=== PATIENT | male | born 1970 | race Caucasian/White ===

== ENCOUNTER 2020-09-30 09:44 | Emergency (ER) | payer OTHER, SELFPAY ==
[2020-09-30 10:06] VITALS: BP 169/95; PULSE 93; RESP 16; TEMP 36.7; O2SAT 95; BMI 60.8
--- NOTE | 2020-09-30 10:22 | CT_ITS ---
EXAMINATION: CT ABDOMEN AND PELVIS WITHOUT CONTRAST CLINICAL INFORMATION: Mid lower back pain radiating to left flank. COMPARISON: None TECHNIQUE: Multidetector volumetric imaging was performed from the superior aspect of the liver through the pubic symphysis. Sagittal and coronal reformatted images were obtained on the technologist's workstation. This CT examination was performed using dose optimization techniques as appropriate, variously including the following: *Automated exposure control *Adjustment of mA and/or kV according to patient size (this includes techniques or standardized protocols for targeted exams where dose is matched to indication/reason for exam; i.e. extremities or head) *Use of iterative reconstruction technique DLP: 1619 mGy-cm FINDINGS: LUNG BASES: Minimal atelectatic changes seen in the right middle lobe and right lower lobe. A small hiatal hernia is noted. LIVER, GALLBLADDER, AND BILIARY TREE: The liver is normal in size, shape, and attenuation. No focal hepatic lesion or biliary ductal dilatation is present. The gallbladder is unremarkable with no evidence of radiopaque gallstones, gallbladder wall thickening, or obvious pericholecystic inflammatory changes. PANCREAS: Mild fatty infiltration of pancreatic head and the uncinate process is noted. SPLEEN: Unremarkable. ADRENAL GLANDS: Unremarkable. KIDNEYS AND URETERS: The kidneys are normal in size, shape, and attenuation. No hydronephrosis, hydroureter, or calculi seen.There is a 2.3 cm cyst upper pole cortex right kidney. In addition there is mild thinning of the upper pole cortex right kidney. Mild perinephric stranding is seen bilaterally. BLADDER: Unremarkable. GASTROINTESTINAL TRACT: A few scattered diverticuli in scattered stool and gas is seen throughout the colon without distention. The small bowel loops are normal caliber. No free air free fluid seen. ABDOMINAL WALL: No significant hernia is appreciated. LYMPH NODES: Normal. VASCULAR: Unremarkable. PELVIC VISCERA: The prostate gland is normal size with punctate calcification. The periprostatic fat planes are preserved. OSSEOUS STRUCTURES: No fracture, lytic or sclerotic process seen. There is mild degenerative changes bilateral L4-L5 facet joint. CT/CT abdomen pelvis wo con IMPRESSION: Small hiatal hernia. Fatty infiltration of head and the uncinate process of pancreas no suggestion for pancreatitis. No radiopaque gallstones are radiopaque renal calculi. No hydronephrosis. Small cysts with cortical thinning upper pole right kidney. Scattered colonic diverticulosis without adenitis
--- NOTE | 2020-09-30 10:31 | ED.BACK ---
HPI - Back Pain/Injury General Chief Complaint: Back Pain/Injury <LATISHA Whitaker Last Filed: 09/30/20 11:38> Stated Complaint: BACK AND HIP PAIN <LATISHA Whitaker Last Filed: 09/30/20 11:38> Time Seen by Provider: 09/30/20 10:11 <LATISHA Whitaker Last Filed: 09/30/20 11:38> Source: patient <LATISHA Whitaker Last Filed: 09/30/20 11:38> Mode of arrival: ambulatory <LATISHA Whitaker Last Filed: 09/30/20 11:38> Limitations: no limitations <LATISHA Whitaker Last Filed: 09/30/20 11:38> History of Present Illness HPI Narrative: 50yoM c No Sig PMHx presenting to the ED c c/o left mid to lower back pain radiating to left flank/abd/hip/groin for the past few days worse today. Denies any other symptoms complaints or concerns related to this. <LATISHA Whitaker Last Filed: 09/30/20 11:38> Related Data Home Medications: Previous Rx's Medication Instructions Recorded dexamethasone [Decadron] 6 mg PO ONCE #1 tab 09/30/20 diazepam [Valium] 5 mg PO TID PRN #10 tab 09/30/20 lidocaine 1 patch TOPICAL DAILY #15 ea NS 09/30/20 oxycodone 5 mg PO Q8H PRN #10 tab NS 09/30/20 <LATISHA Whitaker Last Filed: 09/30/20 11:38> Allergies/Adverse Reactions: Allergies Allergy/AdvReac Type Severity Reaction Status Date / Time Bleach (Sodium Hypochlorite) Allergy Mild REDNESS Unverified 08/15/20 17:11 [BLEACH (SODIUM ALL OVER HYPOCHLORITE)] BODY naproxen [Aleve] Allergy Unknown Verified 11/11/15 00:00 From ALEVE Allergy Unknown CHEST PAIN Uncoded 08/15/20 17:11 <LATISHA Whitaker Last Filed: 09/30/20 11:38> Review of Systems Review of Systems: Constitutional : No trauma, No Weight loss, No Fever, No Chills, ENT/Mouth : No Hearing loss, No Ear Pain, No Nasal Congestion, No Sinus Pain, No Hoarseness, No sore throat, No Rhinorrhea, No Swallowing Difficulty Cardiovascular : No Chest Pain, No SOB Respiratory : No Cough, No Dyspnea Gastrointestinal : No Nausea, No Vomiting, No Diarrhea, No abdominal Pain, No Hematochezia, No Melena Genitourinary : No Dysuria, No Urinary Frequency, No Hematuria, No Urinary or Bowel Incontinence/retention Musculoskeletal : + Back pain, No neck pain, No joint stiffness, No joint swelling Skin : No Skin Lesions, No rash or signs of infection Neuro : No Weakness, No radiation, No Numbness, No Paresthesias, No headache, no loss of bowel or bladder incontinence, no saddle anesthesia Denies history of IV drug usage. <LATISHA Whitaker - Last Filed: 09/30/20 11:38> Yes all other systems are reviewed and are negative <LATISHA Whitaker - Last Filed: 09/30/20 11:38> [facility] Past Medical History Attestation statement: The following information was validated with the patient. <LATISHA Whitaker - Last Filed: 09/30/20 11:38> Medical History: Medical History No known health problems <LATISHA Whitaker - Last Filed: 09/30/20 11:38> Social History Social History: Social History Advance Directives: No Advance Directives Information Provided: No <LATISHA Whitaker - Last Filed: 09/30/20 11:38> Physical Exam Vital Signs: Vital Signs: Vital Signs Temp Pulse Resp BP Pulse Ox 09/30/20 10:06 98.0 F 93 16 169/95 H 95 Body Mass Index 60.8 vital signs have been reviewed as normal and appeared to be correct. Blood pressure hypertensivel. Heart rate normal. Respiration rate normal. Temperature normal. Oxygen saturation normal. <LATISHA Whitaker - Last Filed: 09/30/20 11:38> Vital Signs: Vital Signs Temp Pulse Resp BP Pulse Ox 09/30/20 10:06 98.0 F 93 16 169/95 H 95 Body Mass Index 60.8 <Real Lopez MD - Last Filed: 10/11/20 01:20> Appearance: Alert. Oriented X3. No acute distress. Head: Normal external exam. Normocephalic. Atraumatic. No Johnson signs noted. No raccoon eyes noted Eyes: PERRLA. EOMI. Conjunctiva and sclera normal. Eyelids normal. ENT: EAC normal. TM's Normal. Pharynx normal. Uvula midline. Moist mucous membranes. No trismus noted. No drooling noted. No muffled voice noted. Neck: Normal inspection. Neck supple. FROM. No adenopathy. Thyroid Normal. No meningeal signs. No neck mass noted. CVS: Normal heart rate and rhythm. Heart sound normal. No murmurs noted. Pulses normal throughout. Respiratory: No respiratory distress. Painless inspiration. Breath sounds normal. No wheezes/rales/rhonchi noted. Chest nontender. No accessory muscle usage noted or decreased air movement noted. Abdomen: Soft and TTP of left flank/llq. Bowel sounds normal in all 4 quadrants. No distention noted. No organomegaly noted. No visible injury noted. Back: + Left CVA tenderness. Full range of motion noted. No obvious deformities, or edema. Mild para-spinal muscular tenderness from lumbar region to coccyx. Full ROM in back and lower extremities. 5/5 strength hip extension/flexion, abduction, adduction. Mild Lumbar pain with hip flexion against resistance. Straight leg raise test negative on right; Straight leg raise test negative on left; Reflexes normal ankle and knee bilaterally; EHL motor strength normal bilaterally Skin: Skin warm and dry. Normal skin color. Normal skin turgor. No rashes/lesions/lacerations noted. Extremities: No lower extremity edema. Extremities exhibit normal range of motion. Extremities nontender. Neuro: Oriented X 3. No motor deficit. No sensory deficit. Reflexes normal. <LATISHA Whitaker - Last Filed: 09/30/20 11:38> Course Course Course Narrative: Pt c likely muscular pain, but could be herniated disc. Neuro exam shows no deficits. Due to patient reporting the pain is in the mid to lower back atraumatic radiating to the left flank/ left lower quadrant / left hip will obtain a CT scan of abdomen pelvis without IV contrast to evaluate for possible kidney stones and obtain a UA to evaluate for possible UTI. Otherwise Not c/w AAA/epidural abscess/dissection.No high risk Hx (Incont, fever, immunosupp, recent surgery/LP, coag, signif trauma, wt loss, puls mass, hx/o Ca, TB, or IVDU) to warrant MRI today. Not c/w spinal fx. Not cauda equina syndrome. if CT scan within normal limits will DC home with symptomatic treatment and instructions to follow-up with primary care provider. Patient understands agrees the plan. <LATISHA Whitaker - Last Filed: 09/30/20 11:38> I have reviewed the chart <Real Lopez MD - Last Filed: 10/11/20 01:20> MDM - Back Pain/Injury Medical Records Attestation: I reviewed the patient's medical records. <LATISHA Whitaker - Last Filed: 09/30/20 11:38> Lab Data Attestation: I reviewed the patient's lab results. <LATISHA Whitaker - Last Filed: 09/30/20 11:38> Labs: Lab Results 09/30/20 Range/Units 10:55 Urine Color YELLOW Urine Appearance CLEAR Urine pH 6.0 (5.0-8.0) Ur Specific [place] >= 1.030 H (1.005-1.025) Urine Protein NEG (NEG-TRACE) MG/DL Urine Glucose (UA) NEG (NEG) MG/DL Urine Ketones NEG (NEG) MG/DL Urine Blood NEG (NEG) Urine Nitrite NEG (NEG) Ur Leukocyte Esterase NEG (NEG) <LATISHA Whitaker - Last Filed: 09/30/20 11:38> Lab Results 09/30/20 Range/Units 10:55 Urine Color YELLOW Urine Appearance CLEAR Urine pH 6.0 (5.0-8.0) Ur Specific [place] >= 1.030 H (1.005-1.025) Urine Protein NEG (NEG-TRACE) MG/DL Urine Glucose (UA) NEG (NEG) MG/DL Urine Ketones NEG (NEG) MG/DL Urine Blood NEG (NEG) Urine Nitrite NEG (NEG) Ur Leukocyte Esterase NEG (NEG) <Real Lopez MD - Last Filed: 10/11/20 01:20> Imaging Data CT scan - abdomen: Attestation: I personally reviewed and interpreted this imaging study as follows: <LATISHA Whitaker - Last Filed: 09/30/20 11:38> Radiologist's impression: FINDINGS: LUNG BASES: Minimal atelectatic changes seen in the right middle lobe and right lower lobe. A small hiatal hernia is noted. LIVER, GALLBLADDER, AND BILIARY TREE: The liver is normal in size, shape, and attenuation. No focal hepatic lesion or biliary ductal dilatation is present. The gallbladder is unremarkable with no evidence of radiopaque gallstones, gallbladder wall thickening, or obvious pericholecystic inflammatory changes. PANCREAS: Mild fatty infiltration of pancreatic head and the uncinate process is noted. SPLEEN: Unremarkable. ADRENAL GLANDS: Unremarkable. KIDNEYS AND URETERS: The kidneys are normal in size, shape, and attenuation. No hydronephrosis, hydroureter, or calculi seen.There is a 2.3 cm cyst upper pole cortex right kidney. In addition there is mild thinning of the upper pole cortex right kidney. Mild perinephric stranding is seen bilaterally. BLADDER: Unremarkable. GASTROINTESTINAL TRACT: A few scattered diverticuli in scattered stool and gas is seen throughout the colon without distention. The small bowel loops are normal caliber. No free air free fluid seen. ABDOMINAL WALL: No significant hernia is appreciated. LYMPH NODES: Normal. VASCULAR: Unremarkable. PELVIC VISCERA: The prostate gland is normal size with punctate calcification. The periprostatic fat planes are preserved. OSSEOUS STRUCTURES: No fracture, lytic or sclerotic process seen. There is mild degenerative changes bilateral L4-L5 facet joint. CT/CT abdomen pelvis wo con IMPRESSION: Small hiatal hernia. Fatty infiltration of head and the uncinate process of pancreas no suggestion for pancreatitis. No radiopaque gallstones are radiopaque renal calculi. No hydronephrosis. Small cysts with cortical thinning upper pole right kidney. Scattered colonic diverticulosis without adenitis <LATISHA Whitaker - Last Filed: 09/30/20 11:38> Discharge Plan Discharge Clinical Impression: Hernia, hiatal, Renal cyst, Diverticulosis, Degenerative disc disease, lumbar <LATISHA Whitaker - Last Filed: 09/30/20 11:38> Patient Disposition: Home, Self-Care <LATISHA Whitaker - Last Filed: 09/30/20 11:38> Instructions: Hiatal Hernia (ED), Diverticulosis (ED), Degenerative Disc Disease (ED), Kidney Cyst (ED) <LATISHA Whitaker - Last Filed: 09/30/20 11:38> Prescriptions: New oxycodone 5 mg tablet 5 mg PO Q8H PRN (Reason: pain) Qty: 10 RF: 0 diazepam [Valium] 5 mg tablet 5 mg PO TID PRN (Reason: muscle spasm) Qty: 10 RF: 0 dexamethasone [Decadron] 6 mg tablet 6 mg PO ONCE Qty: 1 RF: 0 lidocaine 5 % adhesive patch,medicated 1 patch topical DAILY Qty: 15 RF: 0 <LATISHA Whitaker - Last Filed: 09/30/20 11:38> Referrals: Radha Oviedo MD [Primary Care Provider] - 2 days <LATISHA Whitaker - Last Filed: 09/30/20 11:38> Stand Alone Forms: Work/School Release <LATISHA Whitaker - Last Filed: 09/30/20 11:38> Interventions: ED Discharge Assessment Last Done: 09/30/20 12:06 <LATISHA Whitaker - Last Filed: 09/30/20 11:38> Discharge Date/Time: 09/30/20 12:00 <LATISHA Whitaker - Last Filed: 09/30/20 11:38> Print Language: Upper Sorbian <LATISHA Whitaker - Last Filed: 09/30/20 11:38>
[2020-09-30] MEDS: oxyCODONE HCl Immed Release 5 MG TABLET PO (10:52)
[2020-09-30 11:06] LABS: Glucose Urine UA NEG (NEG); Leukocyte Esterase Urine NEG (NEG); Nitrite Urine NEG (NEG); Specific Gravity - Urine >= 1.030 (1.005-1.025); Urine Blood NEG (NEG); Urine Ketones NEG (NEG); Urine Protein NEG (NEG-TRACE)
[2020-09-30 11:09] LABS: Appearance Urine CLEAR; Color Urine YELLOW; UACC Culture Trigger NO
== END 2020-09-30 12:00 | disposition home or self-care (01) ==
PROVIDERS: Physician Assistant Medical; Emergency Provider Emergency Medicine; PCP Internal Medicine
DX: M54.5 Low back pain (principal); M25.552 Pain in left hip; M25.551 Pain in right hip
CPT/HCPCS: 74176; 81003; 99283; 99284

== ENCOUNTER 2021-05-16 15:57 | Emergency (ER) | payer OTHER, SELFPAY ==
--- NOTE | ~2021-05-16 | XR_ITS ---
EXAMINATION: XR KNEE, LEFT CLINICAL INFORMATION: Knee pain COMPARISON: 10/13/2015 TECHNIQUE: Two views of the left knee. FINDINGS: Again seen is moderate tricompartmental degenerative changes with narrowed joint spaces and sclerosis and marginal osteophytes. No acute fracture is seen. No definite joint effusion is present compared to the prior study from 2014, there has been no significant interval change XR/XR knee LT 2V IMPRESSION: Continued presence of tricompartmental degenerative changes without acute finding
[2021-05-16 16:59] VITALS: BP 145/73; PULSE 86; RESP 18; TEMP 36.9; O2SAT 96; BMI 60.8
--- NOTE | 2021-05-16 19:07 | ED.LOWEXIN ---
HPI - Extremity Injury (Lower) General Chief Complaint: Extremity Injury, Lower Stated Complaint: left knee pain Time Seen by Provider: 05/16/21 18:56 Source: patient and EMS Mode of arrival: EMS History of Present Illness HPI Narrative: 50-year-old male with past medical history of obesity presenting to the ED complaining of left knee pain s/p twisting injury and hearing a popping sound while taking the trash out [employer]. Denies direct injury/trauma or fall. Reports associated tingling/paresthesias. States has been unable to bear weight since incident. Denies head trauma or LOC Related Data Previous Rx's Medication Instructions Recorded dexamethasone [Decadron] 6 mg PO ONCE #1 tab 09/30/20 diazepam [Valium] 5 mg PO TID PRN #10 tab 09/30/20 lidocaine 1 patch TOPICAL DAILY #15 ea NS 09/30/20 oxycodone 5 mg PO Q8H PRN #10 tab NS 09/30/20 hydrocodone-acetaminophen 1 tab PO Q8H PRN 3 Days #9 tab 05/16/21 Allergies Allergy/AdvReac Type Severity Reaction Status Date / Time Bleach (Sodium Hypochlorite) Allergy Mild REDNESS Verified 05/16/21 18:33 [BLEACH (SODIUM ALL OVER HYPOCHLORITE)] BODY naproxen [Aleve] Allergy Unknown Chest Pain Verified 05/16/21 18:33 From ALEVE Allergy Unknown CHEST PAIN Uncoded 08/15/20 17:11 Review of Systems Review of Systems: Constitutional: No Fever, No Chills Cardiovascular: No Chest Pain, No SOB Respiratory: No Cough Gastrointestinal: No Nausea, No Vomiting, No Abdominal pain Musculoskeletal: + joint pain, No Myalgias, + Joint Swelling Skin: No Skin Lesions, No rash Neuro: No Weakness, No Numbness, + Paresthesias Yes all other systems are reviewed and are negative PMFSH Past Medical History Medical History No known health problems Social History Social History Advance Directives: No Advance Directives Information Provided: Yes Physical Exam Vital Signs: Vital Signs: Last Vital Signs Temp 98.4 F 05/16/21 16:59 Pulse 86 05/16/21 16:59 Resp 18 05/16/21 16:59 BP 145/73 H 05/16/21 16:59 Pulse Ox 96 05/16/21 16:59 Body Mass Index 60.8 Const: General: cooperative, healthy appearing and no acute distress Orientation/consciousness: patient oriented x3 Limitations: no limitations HENMT: Head: Yes normal to inspection Ears: hearing grossly normal bilaterally General nose exam: Normal external nose present Face and sinus: Yes normal facial exam Eyes: General: appearance normal, both eyes and all related structures EOM: EOMs intact bilaterally Neck: Neck: Yes normal visual inspection Resp: Effort & Inspection: normal respiratory effort Cardio: Rate: regular rate Peripheral pulses: dorsalis pedis present Skin: Rashes: no rashes Wounds: no wounds Neuro: General: patient oriented x3 Gait exam (Neuro): Normal gait present Extrem: Other: Left knee with tenderness to palpation. No appreciable deformity. Limited flexion and extension secondary to pain. Neurovascularly intact distally. Course Course Course Narrative: XR knee LT 2V IMPRESSION: Continued presence of tricompartmental degenerative changes without acute finding >> patient placed in Benja wrap to follow-up with orthopedics/PCP likely need MRI Discharge Plan Discharge Clinical Impression: Acute knee pain Qualifiers: Laterality: left Qualified Code(s): M25.562 - Pain in left knee Patient Disposition: Home, Self-Care Instructions: Knee Pain (ED) Additional Instructions: Your x-ray showed arthritic changes. Wear Benja wrap at home as needed for stability/comfort Ice and elevate her knee. Bear weight as tolerated. [place] is an opiate pain medication, take with food. Do not drive, drink alcohol, or operate machinery while taking it. In addition take Tylenol however be aware [place] has Tylenol mixed in, do not exceed 4 g of Tylenol 1 day Follow-up with her primary care doctor and Orthopedics as needed. You likely need an MRI Prescriptions: New hydrocodone-acetaminophen 5-325 mg tablet 1 tab PO Q8H PRN (Reason: pain, severe) 3 Days Qty: 9 RF: 0 No Action oxycodone 5 mg tablet 5 mg PO Q8H PRN (Reason: pain) Qty: 10 RF: 0 diazepam [Valium] 5 mg tablet 5 mg PO TID PRN (Reason: muscle spasm) Qty: 10 RF: 0 dexamethasone [Decadron] 6 mg tablet 6 mg PO ONCE Qty: 1 RF: 0 lidocaine 5 % adhesive patch,medicated 1 patch topical DAILY Qty: 15 RF: 0 Referrals: Radha Oviedo MD [Primary Care Provider] - 2 days Janel Caro PA-C [Physician [employer]er Pipe Layer] - 1 week
[2021-05-16] MEDS: Ketorolac Tromethamine 30 MG/ML VIAL IM (19:12)
== END 2021-05-16 19:39 | disposition home or self-care (01) ==
PROVIDERS: Emergency Provider Internal Medicine; PCP Internal Medicine
DX: M25.562 Pain in left knee (principal)
CPT/HCPCS: 73560; 96372; 99284; J1885

== ENCOUNTER 2022-07-18 14:56 | Emergency (ER) | payer OTHER, SELFPAY ==
--- NOTE | ~2022-07-18 | XR_ITS ---
EXAMINATION: XR KNEE, LEFT CLINICAL INFORMATION: Left knee pain. Difficulty ambulating. COMPARISON: None TECHNIQUE: Four views of the left knee. FINDINGS: [id number] tricompartmental degenerative joint changes are seen most pronounced in the medial femoral-tibial and patellofemoral joint spaces. No acute fracture or dislocation. The joint spaces are unremarkable. The soft tissues are unremarkable. XR/XR knee LT 4V IMPRESSION: Mild to moderate tricompartmental degenerative joint changes. No overt acute abnormality.
[2022-07-18 15:19] VITALS: BP 118/99; PULSE 90; RESP 18; TEMP 37.2; O2SAT 95; BMI 60.8
== END 2022-07-18 18:37 | disposition left against medical advice (07) ==
PROVIDERS: Emergency Provider Emergency Medicine; PCP Internal Medicine
DX: S89.92XA Unspecified injury of left lower leg, initial encounter (principal); X50.1XXA Overexertion from prolonged static or awkward postures, initial encounter; Y93.89 Activity, other specified; Y92.038 Other place in apartment as the place of occurrence of the external cause; Y99.9 Unspecified external cause status
CPT/HCPCS: 73564; 99281; 99283

== ENCOUNTER 2023-05-16 10:51 | Emergency (ER) | payer OTHER, SELFPAY ==
--- NOTE | ~2023-05-16 | US_ITS ---
EXAMINATION: US VENOUS ULTRASOUND WITH DOPPLER LOWER EXTREMITY, RIGHT CLINICAL INFORMATION: Pain COMPARISON: None available. TECHNIQUE: Ultrasound of the deep veins is performed from the hip to the calf with compression sonography and color and pulse Doppler assessment. Spectral analysis with color-flow imaging is performed. FINDINGS: Technically limited examination due to body habitus. There is normal venous compression and respiratory variation and augmented flow. The visualized common femoral vein, superficial femoral vein, profunda femoral vein, popliteal vein, and the trifurcation region shows no evidence of deep venous thrombosis. There is no significant popliteal fossa cyst. Visualized demonstrate normal vascular flow. If the patient's symptoms persist, followup ultrasound in 5 days 7 days might be of value to exclude proximal propagation from a non-visualized calf vein. US/US venous duplex LE RT IMPRESSION: No DVT demonstrated in the right lower extremity. Scalp remains Technically limited study due to body habitus. If the patient's symptoms persist, followup ultrasound in 5 days 7 days might be of value to exclude proximal propagation from a non-visualized calf vein.
--- NOTE | ~2023-05-16 | XR_ITS ---
Examination: Right knee and right ankle. CLINICAL INDICATION: Right knee and right ankle pain. TECHNIQUE: 4 views right knee and 3 views right ankle. FINDINGS: RIGHT KNEE: There is mild loss of medial and patellofemoral femoral compartment joint space with moderate periarticular spurring in the patellofemoral compartment. No loose bodies or bony erosive changes. There is posterior tibial enthesophytes. No joint effusion or loose bodies. No acute fracture or dislocation. RIGHT ANKLE: The ankle mortise and subtalar joints are normal. No visible acute fracture, dislocation or subluxation seen. No bony erosive changes. There is bimalleolar soft tissue swelling. XR/XR knee RT 3V IMPRESSION: Degenerative arthritic changes right knee. Bimalleolar soft tissue swelling. No visible acute fracture or dislocation.
--- NOTE | ~2023-05-16 | XR_ITS ---
Examination: Right knee and right ankle. CLINICAL INDICATION: Right knee and right ankle pain. TECHNIQUE: 4 views right knee and 3 views right ankle. FINDINGS: RIGHT KNEE: There is mild loss of medial and patellofemoral femoral compartment joint space with moderate periarticular spurring in the patellofemoral compartment. No loose bodies or bony erosive changes. There is posterior tibial enthesophytes. No joint effusion or loose bodies. No acute fracture or dislocation. RIGHT ANKLE: The ankle mortise and subtalar joints are normal. No visible acute fracture, dislocation or subluxation seen. No bony erosive changes. There is bimalleolar soft tissue swelling. XR/XR ankle RT min 3V IMPRESSION: Degenerative arthritic changes right knee. Bimalleolar soft tissue swelling. No visible acute fracture or dislocation.
[2023-05-16 11:02] VITALS: BP 149/95; PULSE 96; RESP 15; TEMP 36.6; O2SAT 96; BMI 62.6
--- NOTE | 2023-05-16 11:17 | ED_ITS ---
HPI - Extremity Injury (Lower) General Chief Complaint: Extremity Injury, Lower Stated Complaint: R ankle pain Time Seen by Provider: 05/16/23 11:10 Source: patient Mode of arrival: ambulatory Limitations: no limitations History of Present Illness HPI Narrative: 52 yo male with history of OCD, obesity here with right knee pain for years with no known injury or trauma. Reports pain in the back of his right knee. No reports of swelling, redness, or warmth or fevers/chills. Also c/o right ankle pain which began last evening with no injury or trauma. No associated redness, swelling, warmth. Did have a fracture in right ankle as a child. Related Data Previous Rx's Medication Instructions Recorded dexamethasone 6 mg tablet 6 mg PO ONCE #1 tab 09/30/20 (Decadron) diazepam 5 mg tablet (Valium) 5 mg PO TID PRN muscle spasm #10 09/30/20 tabs lidocaine 5 % topical patch 1 patch topical DAILY pain #15 ea 09/30/20 oxycodone 5 mg tablet 5 mg PO Q8H PRN pain #10 tabs 09/30/20 hydrocodone 5 mg-acetaminophen 325 1 tab PO Q8H PRN pain, severe 3 05/16/21 mg tablet days #9 tabs Allergies Allergy/AdvReac Type Severity Reaction Status Date / Time Bleach (Sodium Hypochlorite) Allergy Mild REDNESS Verified 05/16/23 11:01 [BLEACH (SODIUM ALL OVER HYPOCHLORITE)] BODY naproxen [Aleve] Allergy Unknown Chest Pain Verified 05/16/23 11:01 From ALEVE Allergy Unknown CHEST PAIN Uncoded 05/16/23 11:01 Review of Systems Review of Systems: Yes all other systems are reviewed and are negative Constitutional: Constitutional: Reports no additional constitutional com plaints, Denies body ache(s), Denies chills, Denies fever(s), Denies headache(s) and Denies weakness Eyes: Eyes: Reports no additional eye complaints and Denies change in vision ENT: Reports system reviewed and no additional complaints, except as documented, Denies dizziness, Denies headache(s), Denies nasal congestion, Denies nasal discharge and Denies neck pain Cardiovascular: Cardiovascular: Reports no additional cardiovascular complaints, Denies chest pain, Denies leg edema and Denies dyspnea Respiratory: Respiratory: Reports no additional respiratory complaints, Denies cough and Denies dyspnea Gastrointestinal: Gastrointestinal: Reports no additional gastrointestinal complaints, Denies abdominal pain, Denies diarrhea, Denies nausea and Denies vomiting Genitourinary: Genitourinary: Denies urinary incontinence Musculoskeletal: Musculoskeletal: Reports no additional musculoskeletal complaints, Denies back pain, Reports arthralgias, Denies joint swelling, Denies neck pain, Denies numbness and Denies tingling Integumentary/Breasts: Skin/Breast: Reports system reviewed and no additional complaints, except as docu and Denies rash Neurologic: Reports system reviewed and no additional complaints, except as documented, Denies Abnormal speech present, Denies dizziness, Denies headache(s), Denies numbness, Denies tingling and Denies weakness PMFSH Past Medical History Attestation statement: The following information was validated with the patient. Source: old records reviewed and nursing notes reviewed Medical History No known health problems Social History Social History Alcohol intake: never Smoked in Last 30 Days: No Advance Directives: No Advance Directives Information Provided: Yes Physical Exam Vital Signs: Vital Signs: Last Vital Signs Temp 98 F 05/16/23 11:02 Pulse 96 05/16/23 11:02 Resp 15 05/16/23 11:02 BP 149/95 H 05/16/23 11:02 Pulse Ox 96 05/16/23 11:02 O2 Del Method Room Air 05/16/23 11:02 BMI result Body Mass Index 62.6 Const: General: cooperative, healthy appearing, comfortable and no acute distress Orientation/consciousness: patient oriented x3 Limitations: no limitations HEENT: Head: Yes normal to inspection Ears: hearing grossly normal bilaterally General nose exam: Normal external nose present Face and sinus: Yes normal facial exam Mouth: Normal oral and palatal mucosa present Throat: Yes posterior oropharynx normal Eyes: General: appearance normal, both eyes and all related structures Pupils: Equal, round and reactive pupils present Neck: Neck: Yes normal visual inspection Chest: Chest palpation & inspection: normal inspection of the chest Resp: Effort & Inspection: normal respiratory effort Auscultation: clear to auscultation bilaterally Cardio: Rate: regular rate Rhythm: regular rhythm Peripheral pulses: Peripheral pulses 2+ throughout GI: Inspection: Yes normal to inspection Palpation (GI): Soft to palpation and nontender Auscultation: normal bowel sounds Back/Spine/Pelvis: Thoracic/Lumbar Spine: thoracic and lumbar spine normal to inspection Skin: General skin exam: no rashes or lesions noted Neuro: General: patient oriented x3, no focal motor deficits and normal sensation to monofilament Cranial nerves: Yes Equal, round and reactive pupils present Cognition (Neuro): normal cognition Speech: No Abnormal speech present Gait exam (Neuro): Normal gait present Motor exam (neuro): 5/5 motor strength present throughout Extrem: Other: There is tenderness to the posterior right knee with no obvious swelling, redness or warmth. There is full range of motion of the knee. This no ligamental laxity. There is tenderness and slight swelling noted over the right lateral ankle with full range of motion of the ankle. There are palpable DP and PT pulses. Sensation is intact distally. General: Yes normal to inspection Course Course Course Narrative: Ultrasound negative for DVT. X-ray shows arthritic changes. Recommend supportive care at home. Reviewed worrisome signs and symptoms of when to return to the emergency room. Comfortable plan for discharge home. Medical Decision Making Medical Decision Making [facility] Narrative: 52-year-old male here with atraumatic right knee and ankle pain. On exam patient complaining of posterior right knee pain. Patient is obese. Will obtain ultrasound to rule out DVT Also complaining of ankle pain. Will check x-rays Differential Diagnosis Differential Diagnoses: The differential diagnosis associated with the presentation includes Fracture, stress fracture, Hernandez's cyst, osteoarthritis, DVT Independent Interpretation I performed an independent interpretation of an: Plain X-Ray and Ultrasound Interpretation: I independently reviewed the x-rays and agree with report Radiology Impression Discussion of test interpretation with radiology: I have reviewed the radiologist's reading. Radiologist Impression: [address] [address] XRay Report Signed Patient: Dashawn Landry MR#: [id number] : 1970 Acct:[id number] Age/Sex: 52 / M ADM Date: 05/16/23 Loc: HO.ED Attending Dr: Ordering Physician: Bernadette Edwards MD Date of Service: 05/16/23 Procedure(s): XR ankle RT min 3V Accession Number(s): [id number] cc: Bernadette Edwards MD~ Examination: Right knee and right ankle. CLINICAL INDICATION: Right knee and right ankle pain. TECHNIQUE: 4 views right knee and 3 views right ankle. FINDINGS: RIGHT KNEE: There is mild loss of medial and patellofemoral femoral compartment joint space with moderate periarticular spurring in the patellofemoral compartment. No loose bodies or bony erosive changes. There is posterior tibial enthesophytes. No joint effusion or loose bodies. No acute fracture or dislocation. RIGHT ANKLE: The ankle mortise and subtalar joints are normal. No visible acute fracture, dislocation or subluxation seen. No bony erosive changes. There is bimalleolar soft tissue swelling. XR/XR ankle RT min 3V IMPRESSION: Degenerative arthritic changes right knee. ? Bimalleolar soft tissue swelling. No visible acute fracture or dislocation. Discharge Plan Discharge Clinical Impression: Osteoarthritis Patient Disposition: Home, Self-Care Instructions: Osteoarthritis (ED) Additional Instructions: Your x-ray shows arthritis Apply heat or ice to the affected area Gentle stretching, rest and elevate Take Motrin or Tylenol if able as needed for pain Follow-up with your primary care doctor for any continued symptoms Prescriptions: No Action oxycodone 5 mg tablet 5 mg PO Q8H PRN (Reason: pain) Qty: 10 0RF diazepam [Valium] 5 mg tablet 5 mg PO TID PRN (Reason: muscle spasm) Qty: 10 0RF dexamethasone [Decadron] 6 mg tablet 6 mg PO ONCE Qty: 1 0RF lidocaine 5 % adhesive patch,medicated 1 patch topical DAILY Qty: 15 0RF Rx Instructions: leave on most painful area for up to 12 hrs hydrocodone-acetaminophen 5-325 mg tablet 1 tab PO Q8H PRN (Reason: pain, severe) 3 Days Qty: 9 0RF Referrals: Radha Oviedo MD [Primary Care Provider] - 1 week
== END 2023-05-16 12:52 | disposition home or self-care (01) ==
PROVIDERS: Emergency Provider Student in an Organized Health Care Education/Training Program; PCP Internal Medicine
DX: M17.11 Unilateral primary osteoarthritis, right knee (principal); M79.661 Pain in right lower leg; M25.471 Effusion, right ankle; M25.571 Pain in right ankle and joints of right foot; E66.9 Obesity, unspecified; Z68.44 Body mass index [BMI] 60.0-69.9, adult
CPT/HCPCS: 73562; 73610; 93971; 99284

== ENCOUNTER 2023-08-12 14:36 | Outpatient (AMB) | payer OTHER, SELFPAY ==
--- NOTE | 2023-08-12 15:00 | MHC.OFFVIS ---
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 Patient reports right knee pain started about 3 months ago. States yesterday he twisted right knee and now has calf pain today that felt like a rubber band snapping. Constant pain across front of knee and center of calf that gets worse at night and with weather. No previous tx. Finds no relief with Advil, Tylenol, ice and heat. Denies injury, numbness or tingling Allergies Bleach (Sodium Hypochlorite) [BLEACH (SODIUM HYPOCHLORITE)] Allergy (Mild, Verified 08/12/23 15:01) REDNESS ALL OVER BODY naproxen [Aleve] Allergy (Unknown, Verified 08/12/23 15:) Chest Pain From ALEVE Allergy (Unknown, Uncoded 08/12/23 15:) CHEST PAIN HPI chief accountant- Right knee pain HPI Details 52-year-old male who presents to the office today for evaluation of right knee pain for about 3 months. He also reports he twisted his knee and had pain which feels like a rubber band snapping in his calf yesterday. He states he has constant pain in the front of his knee and at the center of the calf which gets aggravated at night and with weather. He also c/o popping of his knee with putting the sock up on his bed and had experienced knee giving out in the past. He denies any injury, numbness or tingling and has not had any treatment in the past. He finds no relief with Advil, Tylenol, ice and heat treatment. He has a history of gout. He does not have a history of diabetes. [facility] Medical History No known health problems Social History (Updated 08/12/23 @ 15:06 by SAHARA Novak) Alcohol intake: never Patient Tobacco Use Status: Never used Tobacco Current occupational status: disabled Review of Systems Const All systems reviewed & are unremarkable except as noted in HPI and below Physical Exam Vital Signs: BMI result Body Mass Index 62.6 Const General: cooperative, healthy appearing, comfortable, no acute distress, well developed and alert Orientation/consciousness: patient oriented x3 HEENT Head: Yes normal to inspection, Yes normocephalic and Yes atraumatic Eyes General: appearance normal, both eyes and all related structures Resp Effort & Inspection: normal respiratory effort and able to speak in complete sentences Cardio Rate: regular rate Peripheral pulses: Peripheral pulses 2+ throughout GI Palpation (GI): Soft to palpation Skin Lesions: no lesions Rashes: no rashes Neuro General: patient oriented x3 Extrem Other: Right knee: Skin intact, no erythema or joint effusion. Tenderness along the medial joint line. Full ROM with crepitus. Negative Cortney?s. No ligamentous laxity. NVI. Office Procedures Joint Injection/Drain Joint Injection/Drain Primary Site: right knee Prep: site was prepped using aseptic technique, ethochloride spray was applied and injection warnings given Injected: 80 mg of, DepoMedrol, with 8 mL of, 1% plain lidocaine and in the joint Approach Used: anterolateral Procedure: The patient tolerated the procedure well and there was some relief with the local anesthesia Coding 81104 - Glenohumeral/Tronchanteric Bursa/Intraarticular Procedure code (CPT) selection complete Results Reviewed Results Reviewed: 08/12/23 15:21 Lidocaine HCl 2 % MPF [Xylocaine 2 % MPF] 5 ml .ROUTE .STK-MED ONE methylPREDNISolone acetate [DEPO-MedroL] 80 mg .ROUTE .STK-MED ONE xrays of the right knee obtained on 05/16/23 show tricompartmental oa Assessment & Plan Assessment & Plan (1) Osteoarthritis of right knee: Code(s): M17.11 - Unilateral primary osteoarthritis, right knee Qualifiers: Osteoarthritis type: primary Qualified Code(s): M17.11 - Unilateral primary osteoarthritis, right knee Plan We discussed options today which include steroid injection. They did consent to move forward with the right knee injection, which was tolerated well. I recommended rest, ice and elevation and OTC anti-inflammatories PRN for discomfort. If symptoms persist or worsens over the next 6-8 weeks, patient will contact the office, otherwise follow-up as needed. Patient Instructions: Scribed for Blaine Street PA-C, by Brendan Call medical assisting program director, on 08/12/2023 at 3:00 PM EST. I, Blaine Street PA-C, have personally reviewed and agree with the information entered by the scribe. Coding Level of Care Code New Pt Level 3 (90779) Diagnoses Primary osteoarthritis of right knee M17.11 Osteoarthritis type: primary CPT Codes Coding - Joint 7: 64875 - Glenohumeral/Tronchanteric Bursa/Intraarticular ([id number])
[2023-08-12 15:10] VITALS: BMI 62.6
== END 2023-08-12 16:06 | disposition home or self-care (01) ==
PROVIDERS: PCP Internal Medicine; Visit Provider Physician Assistant
DX: M17.11 Unilateral primary osteoarthritis, right knee (principal)
CPT/HCPCS: 20610; 99204

== ENCOUNTER → 2023-08-12 14:36 | Outpatient (BNVA) | payer OTHER, SELFPAY | PROVIDERS: PCP Internal Medicine; Visit Provider Physician Assistant | DX: M17.11 Unilateral primary osteoarthritis, right knee (principal) | CPT/HCPCS: 20610; J1040 ==

== ENCOUNTER 2023-11-18 13:41 | Emergency (ER) | payer OTHER, SELFPAY ==
--- NOTE | ~2023-11-18 | US_ITS ---
EXAMINATION: US SCROTUM CLINICAL INFORMATION: Left testicular pain. COMPARISON: None available. TECHNIQUE: A sonogram of the scrotum was performed assessing hassan-scale appearance and color Doppler flow. Spectral Doppler analysis of the arterial and venous flow were performed in the testes bilaterally. FINDINGS: There is some mild scrotal skin thickening present up to approximately 5 mm in diameter. RIGHT: Right testicle measures 3.6 x 1.8 x 2.1 cm, volume 7.2 mL. No suspicious focal testicular parenchymal lesions are visualized. 1 mm echogenic focus without vascularity seen likely representing a calcification or scar or other benign etiology about the lateral lower pole. Spectral Doppler analysis of the arterial and venous flow is normal in the right testis. Right epididymal head is normal in size. No right hydrocele or varicocele is seen. Right epididymal Doppler flow is normal. LEFT: Left testicle measures 3.1 x 1.9 x 2.0 cm, volume 6.1 mL. No focal testicular parenchymal lesions are visualized. Spectral Doppler analysis of the arterial and venous flow is normal in the left testis. Left epididymal head is normal in size. No left hydrocele or varicocele is seen. Left epididymal Doppler flow is normal. US/US scrotum doppler IMPRESSION: No significant scrotal abnormality appreciated.
--- NOTE | ~2023-11-18 | US_ITS ---
EXAMINATION: US SCROTUM CLINICAL INFORMATION: Left testicular pain.. COMPARISON: None available. TECHNIQUE: A sonogram of the scrotum was performed assessing hassan-scale appearance and color Doppler flow. Spectral Doppler analysis of the arterial and venous flow were performed in the testes bilaterally. FINDINGS: RIGHT: Right testicle measures 3.6 x 1.8 x 2.1 cm, volume 7.2 mL. No focal testicular parenchymal lesions are visualized. However there is non shadowing echogenic calcification measuring less than 2 mm. Spectral Doppler analysis of the arterial and venous flow is normal in the right testis. Right epididymal head is normal in size. No right hydrocele or varicocele is seen. Right epididymal Doppler flow is normal. LEFT: Left testicle measures 3.1 x 1.9 x 2.0 cm, volume 6.1 mL. No focal testicular parenchymal lesions are visualized. Spectral Doppler analysis of the arterial and venous flow is normal in the left testis. Left epididymal head is normal in size. No left hydrocele or varicocele is seen. Left epididymal Doppler flow is normal. There is mild bilateral scrotal wall skin thickening. US/US scrotum IMPRESSION: 1. Mild bilateral scrotal wall skin thickening. 2. Small right testicular calcification. Otherwise both testes are unremarkable. 3. Normal Doppler flow seen to both testes and epididymis.
--- NOTE | ~2023-11-18 | US_ITS ---
EXAMINATION: US RETROPERITONEAL LIMITED (RENAL ONLY) CLINICAL INFORMATION: Dysuria. COMPARISON: CT scan of September 30, 2020 TECHNIQUE: Renal ultrasound FINDINGS: RIGHT KIDNEY: 13.1 x 6.7 x 5.5 cm (SAG x AP x TRV). The kidney is normal in size, contour, and echogenicity. Renal cortical thickness is normal. No calculi or focal solid parenchymal lesions. No hydronephrosis. There is a 2.4 x 1.6 x 2.4 cm simple appearing cyst within the upper pole which does not require follow-up. LEFT KIDNEY: 13.0 x 6.2 x 5.5 cm (SAG x AP x TRV). The kidney is normal in size, contour, and echogenicity. Renal cortical thickness is normal. No calculi or focal parenchymal lesions. No hydronephrosis. US/US renal BI IMPRESSION: No evidence of medical renal disease or obstructive uropathy. 2.4 cm right renal cyst..
[2023-11-18 14:48] VITALS: BP 148/89; PULSE 108; RESP 18; TEMP 37.1; O2SAT 95; BMI 57.8
--- NOTE | 2023-11-18 14:48 | ED.BACK ---
HPI - Back Pain/Injury General Chief Complaint: Urogenital-Male Stated Complaint: Lower back pain, lower abd pain Time Seen by Provider: 11/18/23 18:40 Source: patient Mode of arrival: ambulatory Limitations: no limitations History of Present Illness HPI Narrative: Patient with history of hypertension otherwise healthy no history of kidney stone or recurrent kidney infection comes here for dysuria and scrotal pain since last night also complaining of low back pain flank pain since yesterday with chills no nausea no vomiting no fever Related Data Home Medications Medication Instructions Recorded Confirmed escitalopram oxalate 10 mg tablet 10 mg PO DAILY 08/12/23 lisinopril 10 mg tablet 10 mg PO BEDTIME 08/12/23 Previous Rx's Medication Instructions Recorded cefuroxime axetil 500 mg tablet 500 mg PO BID 10 days #20 tabs 11/18/23 Allergies Allergy/AdvReac Type Severity Reaction Status Date / Time Bleach (Sodium Hypochlorite) Allergy Mild REDNESS Verified 11/18/23 14:48 [BLEACH (SODIUM ALL OVER HYPOCHLORITE)] BODY naproxen [Aleve] Allergy Unknown Chest Pain Verified 11/18/23 14:48 From ALEVE Allergy Unknown CHEST PAIN Uncoded 08/12/23 15:01 Review of Systems Review of Systems: Yes all other systems are reviewed and are negative PMFSH Past Medical History Medical History No known health problems Social History Social History Alcohol intake: never Patient Tobacco Use Status: Never used Tobacco Current occupational status: disabled Physical Exam Vital Signs: Vital Signs: Last Vital Signs Temp 99.8 F 11/18/23 20:01 Pulse 82 11/18/23 20:01 Resp 18 11/18/23 20:01 BP 100/59 L 11/18/23 20:01 Pulse Ox 96 11/18/23 20:01 O2 Del Method Room Air 11/18/23 20:01 BMI result Body Mass Index 57.8 Appearance: Alert. Oriented X3. No acute distress. Eyes: PERRLA, No Nystagmus ENT: Pharynx normal. Oral Mucosa moist Neck: Normal inspection. Neck supple. CVS: Normal heart rate and rhythm. Pulses normal. Respiratory: No respiratory distress. Equal air entry bilateral, no wheezing/rales/rhonchi Abdomen: Soft and nontender. Bowel sounds are present, no mass palpable, bilateral mild CVA tenderness rectal: Slightly enlarge prostate, nontender Skin: Skin warm and dry. Normal skin color. Normal skin turgor. Extremities: No lower extremity edema. No calf tenderness Neuro: Oriented X 3. No motor deficit. Course Course Course Narrative: RME: 53yo M w/PMHx OA c/o bilateral low back pain and suprapubic pressure/dysuria x last night. Also reports L testicular pain & chills. Labs, UA, CTNG, Scrotal and renal US ordered Full HPI, ROS and PE to be performed by primary ED provider. Medications Administered Discontinued Medications Generic Name Dose Route Start Last Admin Trade Name Freq PRN Reason Stop Dose Admin Acetaminophen 975 mg 11/18/23 19:37 11/18/23 19:59 Acetaminophen 325 Mg Tablet PO 11/18/23 19:38 975 mg ONCE ONE Administration Sodium Chloride 1,000 mls @ 999 mls/hr 11/18/23 19:02 11/18/23 19:31 Ns IV 11/18/23 20:02 999 mls/hr .Q1H1M ONE Administration Ceftriaxone Sodium 2 gm/ 50 mls @ 100 mls/hr 11/18/23 19:02 11/18/23 19:33 Sodium Chloride IV 11/18/23 19:31 100 mls/hr ONCE ONE Administration Morphine Sulfate 4 mg 11/18/23 19:02 11/18/23 19:33 Morphine Sulfate 4 Mg/Ml Cartridge IVPUSH 11/18/23 19:03 4 mg ONCE ONE Administration Protocol Ondansetron HCl 4 mg 11/18/23 19:02 11/18/23 19:33 Ondansetron Hcl 4 Mg/2 Ml Vial IVPUSH 11/18/23 19:03 4 mg ONCE ONE Administration Medical Decision Making Medical Decision Making [facility] Narrative: Patient with uncomplicated pyelonephritis received IV Rocephin ultrasound of scrotum and negative will discharge patient home on Ceftin Differential Diagnosis Differential Diagnoses: The differential diagnosis associated with the presentation includes UTI/prostatitis/pyelonephritis/kidney stone Lab Data [facility] Lab Attestation statement: I reviewed the patient's lab results. 11/18/23 15:15 11/18/23 15:15 Labs: Lab Results 11/18/23 11/18/23 Range/Units 15:15 19:29 WBC 23.4 H (4.8-10.8) X10*3/uL RBC 4.96 (4.60-5.80) X10*6/uL Hgb 15.2 (14.0-18.0) g/dl Hct 45.1 (42.0-52.0) % MCV 90.9 (80.0-98.0) fL MCH 30.6 (27.0-33.0) pg MCHC 33.7 (31.0-36.0) g/dl RDW 13.2 (11.0-16.0) % Plt Count 250 (160-400) X10*3/uL MPV 10.1 (9.4-12.4) fL Immature Gran % (Auto) Cancelled Neut % (Auto) Cancelled Lymph % (Auto) Cancelled Robertson % (Auto) Cancelled Eos % (Auto) Cancelled Baso % (Auto) Cancelled Lymph # (Auto) Cancelled Robertson # (Auto) Cancelled Eos # (Auto) Cancelled Baso # (Auto) Cancelled Abs Immat Gran (auto) Cancelled Absolute Neuts (auto) Cancelled Absolute Nucleated RBC 0.000 (0.0-0.012) X10*3/uL Nucleated RBC % (auto) 0.0 (0.0-0.2) /100WBC Neutrophils % (Manual) 86 H (45-73) % Lymphocytes % (Manual) 8 L (20-40) % Monocytes % (Manual) 6 (2-11) % Abs Neuts (Manual) Not Reportable Lymphocytes # (Manual) 1.9 (1.2-4.9) X10*3/uL Monocytes # (Manual) 1.4 H (0.1-1.2) X10*3/uL Platelet Estimate NORMAL (NORMAL) Plt Morphology Comment NORMAL RBC Morphology NORMAL Sodium 133 L (135-145) mmol/L Potassium 3.9 (3.3-5.1) mmol/L Chloride 105 (96-108) mmol/L Carbon Dioxide 20 L (22-29) mmol/L Anion Gap 12 (12-20) BUN 13 (9-16) mg/dL Creatinine 0.98 (0.5-1.4) mg/dL Estim Creat Clear Calc 137.1 Estimated GFR > 60 Random Glucose 154 H (60-115) mg/dL Lactic Acid 1.2 (0.5-2.0) mmol/L Calcium 9.7 (8.4-10.2) mg/dL Total Bilirubin 1.9 H (0.0-1.0) mg/dL Direct Bilirubin 0.7 H (0.0-0.5) mg/dL AST 18 (5-37) U/L ALT 20 (0-40) U/L Alkaline Phosphatase 87 (39-117) U/L Total Protein 7.5 (6.5-8.0) g/dL Albumin 4.0 (3.5-5.0) g/dL Lipase 9 (8-78) U/L Urine Color Dark Yellow Urine Appearance Clear Urine pH 6.0 (5.0-9.0) Ur Specific [place] 1.020 (1.005-1.025) Urine Protein 30 (1+) H (Neg-Trace) mg/dL Urine Glucose (UA) Negative (Negative) mg/dL Urine Ketones 15 (Negative) mg/dL Urine Blood Negative (Negative) Urine Nitrite Positive H (Negative) Ur Leukocyte Esterase Moderate (2+) H (Negative) Urine RBC 0-2 (0-2) /HPF Urine WBC >50 H (0-5) /HPF Ur Squamous Epith Cells 0-2 (0-2) /HPF Urine Bacteria Trace (None Seen) Hyaline Casts 3-5 (0-2) /LPF Chlam trachomat DNA PCR NOT DETECTED (Not Detect.) N.gonorrhoeae DNA (PCR) NOT DETECTED (Not Detect.) Independent Interpretation I performed an independent interpretation of an: Ultrasound Radiology Impression Discussion of test interpretation with radiology: I have reviewed the radiologist's reading. Discharge Plan Discharge Clinical Impression: Urinary tract infection Patient Disposition: Home, Self-Care Instructions: Urinary Tract Infection in Men (ED) Additional Instructions: Drink plenty of fluids Take antibiotics as prescribed Report to the ER if high-grade fever/vomiting/ not feeling better Prescriptions: New cefuroxime axetil 500 mg tablet 500 mg PO BID 10 Days Qty: 20 0RF No Action lisinopril 10 mg tablet 10 mg PO BEDTIME escitalopram oxalate 10 mg tablet 10 mg PO DAILY
[2023-11-18 15:23] LABS: Hematocrit 45.1 % (42.0-52.0); Hemoglobin 15.2 g/dl (14.0-18.0); Mean Corpuscular HGB Conc 33.7 g/dl (31.0-36.0); Mean Corpuscular Hemoglobin 30.6 pg (27.0-33.0); Mean Corpuscular Volume 90.9 fL (80.0-98.0); Mean Platelet Volume 10.1 fL (9.4-12.4); Platelet Count 250 X10*3/uL (160-400); Red Blood Count 4.96 X10*6/uL (4.60-5.80); Red Cell Distribution Width 13.2 % (11.0-16.0)
[2023-11-18 15:24] LABS: Appearance Urine Clear; Color Urine Dark Yellow; Glucose Urine UA Negative (Negative); Leukocyte Esterase Urine Moderate (2+) (Negative); Nitrite Urine Positive (Negative); UMIC TRIGGER UACC YES; Urine Blood Negative (Negative); Urine Ketones 15 mg/dL (Negative); Urine Protein 30 (1+) mg/dL (Neg-Trace)
[2023-11-18 15:27] LABS: Bacteria Urine Trace (None Seen); RBC Urine 0-2 /HPF (0-2); Squamous Epithelial Cell Urine 0-2 /HPF (0-2); UACC Culture Trigger YES; WBC Urine >50 /HPF (0-5)
[2023-11-18 15:30] LABS: WBC ABN SCTR FOR CBC 1
[2023-11-18 15:36] LABS: Alanine Aminotransferase 20 U/L (0-40); Alkaline Phosphatase 87 U/L (39-117); Anion Gap 12 (12-20); Aspartate Amino Transferase 18 U/L (5-37); Bilirubin Direct 0.7 mg/dL (0.0-0.5); Bilirubin Total 1.9 mg/dL (0.0-1.0); Blood Urea Nitrogen 13 mg/dL (9-16); Calcium 9.7 mg/dL (8.4-10.2); Carbon Dioxide 20 mmol/L (22-29); Chloride 105 mmol/L (96-108); Creatinine Clr Calc Pharmacy 137.1; Estimated Glomerular Filt Rate > 60; Glucose Random 154 mg/dL (60-115); Lipase 9 U/L (8-78); Potassium 3.9 mmol/L (3.3-5.1); Sodium 133 mmol/L (135-145); Total Protein 7.5 g/dL (6.5-8.0)
[2023-11-18 16:24] LABS: Lymphocytes Percent Manual 8 % (20-40); Monocytes Percent Manual 6 % (2-11); Neutrophils Percent Manual 86 % (45-73); Platelet Estimate NORMAL (NORMAL); Platelet Morphology Comment NORMAL; RBC Morphology NORMAL
[2023-11-18 16:25] LABS: Lymphocytes Absolute Manual 1.9 X10*3/uL (1.2-4.9); Monocytes Absolute Manual 1.4 X10*3/uL (0.1-1.2); White Blood Count 23.4 X10*3/uL (4.8-10.8)
[2023-11-18 16:56] LABS: CT PCR NOT DETECTED (Not Detect.); NG PCR NOT DETECTED (Not Detect.)
[2023-11-18 18:21] VITALS: BP 135/76; PULSE 93; RESP 18; O2SAT 97
[2023-11-18 19:30] VITALS: TEMP 38.2
[2023-11-18] MEDS: 0.9 % Sodium Chloride 1,000 ML 999 ML IV (19:31)
[2023-11-18] MEDS: ondansetron HCL 4 MG/2 ML VIAL IVPUSH (19:33)
[2023-11-18] MEDS: Morphine Sulfate 4 MG/ML CARTRIDGE IVPUSH (19:33)
[2023-11-18] MEDS: cefTRIAXone sodium 2 GM in 0.9 % Sodium Chloride 50 ML IV (19:33)
[2023-11-18 19:58] LABS: Lactic Acid 1.2 mmol/L (0.5-2.0)
[2023-11-18] MEDS: Acetaminophen 325 MG TABLET 975 MG PO (19:59)
[2023-11-18 20:01] VITALS: BP 100/59; PULSE 82; RESP 18; TEMP 37.7; O2SAT 96
== END 2023-11-18 21:45 | disposition home or self-care (01) ==
PROVIDERS: Physician Assistant; Emergency Provider Internal Medicine
DX: N39.0 Urinary tract infection, site not specified (principal); N50.812 Left testicular pain; R30.0 Dysuria; M54.50 Low back pain, unspecified; R10.2 Pelvic and perineal pain; Z79.899 Other long term (current) drug therapy
CPT/HCPCS: 0353U; 36415; 76775; 76870; 80048; 80076; 81001; 83605; 83690; 85007; 85027; 87040; 87086; 87088; 87186; 93975; 96361; 96374; 96375; 99284; 99285; J0696; J2270; J2405

== ENCOUNTER 2024-01-26 13:11 | Outpatient (AMB) | payer OTHER, SELFPAY ==
--- NOTE | 2024-01-26 13:14 | A.OFFVIS_ITS ---
Intake Intake Visit Reasons: ov- Bilateral knee pain last injection 08/12/23 Intake Note: Dashawn a 53 year old male presents today for a follow up of bilateral knee pain, last right knee injection on 08/12/23. Patient reports last injection provided relief for swelling and not hurting as much walking up and down stairs. He would like to discuss repeat of injection in both knees this time. Allergies Bleach (Sodium Hypochlorite) [BLEACH (SODIUM HYPOCHLORITE)] Allergy (Mild, Verified 01/26/24 13:17) REDNESS ALL OVER BODY naproxen [Aleve] Allergy (Unknown, Verified 01/26/24 13:17) Chest Pain From ALEVE Allergy (Unknown, Uncoded 01/26/24 13:17) CHEST PAIN HPI ov- Bilateral knee pain last injection 08/12/23 HPI Details 53-year-old male who returns to the [facility] today for a follow-up of bilateral knee pain. He had his last right knee injection on 08/12/23 which provided him relief. He states he has reduced swelling as well as pain and has improvement in using stairs. He would like to repeat the injection for bilateral knees. [facility] Medical History No known health problems Social History Alcohol intake: never Patient Tobacco Use Status: Never used Tobacco Current occupational status: disabled Review of Systems Const All systems reviewed & are unremarkable except as noted in HPI and below Physical Exam Extrem Other: Bilateral knee: Skin intact, no erythema or joint effusion. Tenderness along the medial and lateral joint line. Full ROM with crepitus. Negative Cortney?s. No ligamentous laxity. NVI. Office Procedures Joint Injection/Drain Joint Injection/Drain Primary Site: right knee Secondary Site: left knee Prep: site was prepped using aseptic technique, ethochloride spray was applied and injection warnings given Injected: 40 mg of, DepoMedrol, with 4 mL of, 1% plain lidocaine and in the joint Approach Used: anterolateral Procedure: The patient tolerated the procedure well and there was some relief with the local anesthesia Coding 30427 - Glenohumeral/Tronchanteric Bursa/Intraarticular Procedure code (CPT) selection complete Assessment & Plan Assessment & Plan (1) Osteoarthritis of right knee: Code(s): M17.11 - Unilateral primary osteoarthritis, right knee Qualifiers: Osteoarthritis type: primary Qualified Code(s): M17.11 - Unilateral primary osteoarthritis, right knee Plan We discussed options today which include steroid injection. They did consent to move forward with the bilateral knee injection, which was tolerated well. I recommended rest, ice and elevation and OTC anti-inflammatories PRN for discomfort. If symptoms persist or worsens over the next 6-8 weeks, patient will contact the office, otherwise follow-up as needed. Patient Instructions: Scribed for Blaine Street PA-C, by Brendan Call director of graduate medical education, on 01/26/2024 at 1:30 PM EST. Bonnie, Blaine Street PA-C, have personally reviewed and agree with the information entered by the scribe. Coding Level of Care Code Est Pt Level 3 (55058) Diagnoses Primary osteoarthritis of right knee M17.11 Osteoarthritis type: primary CPT Codes Coding - Joint 7: 14750 - Glenohumeral/Tronchanteric Bursa/Intraarticular ([id number])
== END 2024-01-26 14:02 | disposition home or self-care (01) ==
PROVIDERS: PCP Internal Medicine; Visit Provider Physician Assistant
DX: M17.11 Unilateral primary osteoarthritis, right knee (principal); M25.562 Pain in left knee
CPT/HCPCS: 20610; 99213

== ENCOUNTER → 2024-01-26 13:11 | Outpatient (BNVA) | payer OTHER, SELFPAY | PROVIDERS: PCP Internal Medicine; Visit Provider Physician Assistant | DX: M17.11 Unilateral primary osteoarthritis, right knee (principal) | CPT/HCPCS: 20610; 99212; J1020 ==

== ENCOUNTER 2024-05-03 11:49 | Emergency (ER) | payer OTHER, SELFPAY ==
--- NOTE | ~2024-05-03 | XR_ITS ---
EXAMINATION: Right foot series right ankle series. CLINICAL INFORMATION: Severe pain COMPARISON: None. TECHNIQUE: 3 views of the right ankle including lateral view ankle and foot. 2 additional views of the right foot fail right ankle and foot: FINDINGS: Talonavicular joint: Small ossific density along the dorsal aspect of the joint. This could reflect an old ununited fracture fragment or dystrophic degenerative calcification of the capsule. The remaining bones joints soft tissues are unremarkable. XR/XR ankle RT min 3V IMPRESSION: 1. No acute abnormality. 2. Small ossific density along the dorsal aspect of the talonavicular joint could reflect an old ununited fracture fragment or dystrophic degenerative calcification of the capsule.
--- NOTE | ~2024-05-03 | US_ITS ---
EXAMINATION: US VENOUS ULTRASOUND WITH DOPPLER LOWER EXTREMITY, RIGHT CLINICAL INFORMATION: Pain. COMPARISON: None available. TECHNIQUE: Ultrasound of the deep veins is performed from the hip to the calf with compression sonography and color and pulse Doppler assessment. Spectral analysis with color-flow imaging is performed. FINDINGS: The visualized popliteal, posterior tibialis and peroneal veins show no evidence of deep venous thrombosis. No significant Hernandez's cyst. The patient refused any imaging of both the knee. US/US venous duplex LE RT IMPRESSION: Very limited incomplete examination as the patient refused imaging above the right knee. No evidence of deep venous thrombosis in the right calf.
--- NOTE | ~2024-05-03 | XR_ITS ---
EXAMINATION: Right foot series right ankle series. CLINICAL INFORMATION: Severe pain COMPARISON: None. TECHNIQUE: 3 views of the right ankle including lateral view ankle and foot. 2 additional views of the right foot fail right ankle and foot: FINDINGS: Talonavicular joint: Small ossific density along the dorsal aspect of the joint. This could reflect an old ununited fracture fragment or dystrophic degenerative calcification of the capsule. The remaining bones joints soft tissues are unremarkable. XR/XR foot RT 2V IMPRESSION: 1. No acute abnormality. 2. Small ossific density along the dorsal aspect of the talonavicular joint could reflect an old ununited fracture fragment or dystrophic degenerative calcification of the capsule.
--- NOTE | 2024-05-03 12:06 | ED.GENADULT ---
HPI - General Adult General Chief complaint: Extremity Problem Stated complaint: knee pain Time Seen by Provider: 05/03/24 12:16 Source: patient Mode of arrival: ambulatory Limitations: no limitations History of Present Illness ED Provider: Artie RUIZ HPI narrative: 53 year old male hx of gout, htn, hld, obesity presents with complaints of atraumatic r sided foot and ankle pain x 3 days. Reports pain at time radiates to r calf. Patient reports pain is worse w/ weight bearing and movement better at rest. No numbnesses or tingling. Reports this feels like the time he had gout. Denies fevers, chills, numbness, tingling, cp, sob, nausea, vomiting, abd pain, trauma, recent illness. No hx of pe or dvt not on thinners. Related Data Home Medications ?Medication ?Instructions ?Recorded ?Confirmed escitalopram oxalate 10 mg tablet 10 mg PO DAILY 08/12/23 lisinopril 10 mg tablet 10 mg PO BEDTIME 08/12/23 Previous Rx's ?Medication ?Instructions ?Recorded acetaminophen 500 mg tablet 500 mg PO Q6H PRN pain #14 tabs 05/03/24 (Tylenol Extra Strength) morphine 15 mg immediate release 15 mg PO Q6H PRN pain 5 days #10 05/03/24 tablet tabs prednisone 20 mg tablet 40 mg (2 x 20 mg) PO DAILY 5 days 05/03/24 #10 tabs Allergies Allergy/AdvReac Type Severity Reaction Status Date / Time Bleach (Sodium Hypochlorite) Allergy Mild REDNESS Verified 05/03/24 12:08 [BLEACH (SODIUM ALL OVER HYPOCHLORITE)] BODY naproxen [Aleve] Allergy Unknown Chest Pain Verified 05/03/24 12:08 From ALEVE Allergy Unknown CHEST PAIN Uncoded 01/26/24 13:17 Review of Systems Review of Systems: Yes all other systems are reviewed and are negative PMFSH Past Medical History Attestation statement: The following information was validated with the patient. Source: old records reviewed and nursing notes reviewed Medical History No known health problems Social History Social History Alcohol intake: never Patient Tobacco Use Status: Never used Tobacco Advance Directives: No Advance Directives Information Provided: No Current occupational status: disabled Physical Exam ED Vital Signs: Vital Signs - 24 hr 05/03/24 12:07 Temperature 97.5 F Pulse Rate 93 Respiratory Rate 16 Blood Pressure 148/90 H Pulse Oximetry 95 Oxygen Delivery Method Room Air BMI result Body Mass Index 60.8 vss Appearance: Alert.? Oriented X3.? No acute distress.? Head: Normocephalic, atraumatic, no step-offs or deformities Eyes: Pupils equal, round and reactive to light.? Neck: Normal inspection.? Neck supple.? CVS: Normal heart rate and rhythm.? Pulses normal.? Respiratory: No respiratory distress.? Breath sounds normal.? Abdomen: Soft and nontender.? Skin: Skin warm and dry.? Normal skin color.? Normal skin turgor.? Extremities: No lower extremity edema.? No calf ttp. 5/5 strength to bilateral upper and lower extremities 2+ DP,AT, PT pulses equal and b/l. Swelling to right ankle w/ mild overlying warmth. Full rom but painful to right ankle. Normal painless rom to b/l toes. Normal sensation distally. Back: No midline tenderness, no C-spine tenderness, full range of motion, no CVA tenderness bilaterally Neuro: Oriented X 3.? No motor deficit.? No sensory deficit. CN 2-12 intact Course Course Course Narrative: This is a rapid medical exam performed by Simon Zarate NP: Additional HPI, ROS, PE not included below will be deferred to primary provider. Patient is a 53-year-old male presenting to the ED with complaint of right ankle pain since Wednesday morning. Denies fall or other injury. Reports pain is 13/10. Did not take any Tylenol or ibuprofen, use a THB cream and ice. Plan: xray Reevaluation(s) Reevaluation #1: No acute abnormality of the right foot small ossific density along the dorsal aspect of the hollow navicular joint this is likely from old injury as patient expressed to me when I obtained history he reported a severe injury to his right foot and ankle years ago. I do not suspect acute fracture. D-dimer mildly elevated ultrasound ordered to rule out DVT although unlikely. This is likely gout. Patient's CBC with mild leukocytosis no left shift this is likely reactive due to inflammation/gout flare unlikely from infection. Chemistry with no acute electrolyte abnormalities requiring intervention. Mildly elevated BUN however patient tolerating p.o. will encourage p.o. hydration. Chronically elevated bilirubin this is not a new finding. As long as ultrasound is negative patient to be discharged home with gout treatment Time: 14:04 Reevaluation #2: Patient is refusing the sonography technician scans all the way up to the groin. I explained to sonography technician we should respect patient's wish he is aware that he could have a clot region that could be. Verbalizes understanding of risks. Will do remainder of exam if patient allows Time: 14:35 Reevaluation #3: Ultrasound with very limited incomplete examination as patient refused imaging of the right knee no evidence of DVT in the right calf. No significant swelling to the lower extremity other than ankle, I suspect gout. Advised patient to return with new or worsening symptoms. He understands blood clot could be missed as he refused treatment. Educated patient on diagnosis and treatment plan, answered all question, patient verbalizes understanding. At this time patient will be discharged home, advised to return with new or worsening symptoms. Educated on worrisome signs and symptoms and when to return. At this time I feel comfortable discharge home. Time: 14:55 Medications Administered Discontinued Medications Generic Name Dose Route Start Last Admin Trade Name Freq PRN Reason Stop Dose Admin Morphine Sulfate 15 mg 05/03/24 13:12 05/03/24 13:26 Morphine Sulfate Immed Release 15 Mg Tablet PO 05/03/24 13:13 15 mg ONCE ONE Administration Medical Decision Making Medical Decision Making [facility] Narrative: 1338 53 year old male presents w/ atraumtic r foot/ankle pain x 3 days hx of gout 5/5 strength to bilateral upper and lower extremities 2+ DP,AT, PT pulses equal and b/l. Swelling to right ankle w/ mild overlying warmth. Full rom but painful to right ankle. Normal painless rom to b/l toes. Normal sensation distally. History and physical exam concerning for gout versus pseudogout versus inflammatory arthritis versus sprain or strain. Unlikely fracture, dislocation, arterial or venous occlusion. Unlikely neurovascular compromise or acute threat to limb. Plan imaging basic labs. Differential Diagnosis Differential Diagnoses: The differential diagnosis associated with the presentation includes History and physical exam concerning for gout versus pseudogout versus inflammatory arthritis versus sprain or strain. Unlikely fracture, dislocation, arterial or venous occlusion. Unlikely neurovascular compromise or acute threat to limb. Admission/Observation Consideration of admission/observation: Escalation of care including admission/observation considered Lab Data MDM Lab Attestation statement: I reviewed the patient's lab results. 05/03/24 13:20 05/03/24 13:20 Labs: Lab Results 05/03/24 Range/Units 13:20 WBC 12.7 H (4.8-10.8) X10*3/uL RBC 5.09 (4.60-5.80) X10*6/uL Hgb 15.6 (14.0-18.0) g/dl Hct 46.6 (42.0-52.0) % MCV 91.6 (80.0-98.0) fL MCH 30.6 (27.0-33.0) pg MCHC 33.5 (31.0-36.0) g/dl RDW 13.3 (11.0-16.0) % Plt Count 252 (160-400) X10*3/uL MPV 10.4 (9.4-12.4) fL Immature Gran % (Auto) 0.6 H (0.0-0.4) % Neut % (Auto) 76.4 H (45-73) % Lymph % (Auto) 13.2 L (20-40) % Hanson % (Auto) 9.0 (2-11) % Eos % (Auto) 0.3 (0-4) % Baso % (Auto) 0.5 (0-2) % Lymph # (Auto) 1.7 (1.2-4.9) X10*3/uL Hanson # (Auto) 1.1 (0.1-1.2) X10*3/uL Eos # (Auto) 0.0 (0.0-0.4) X10*3/uL Baso # (Auto) 0.1 (0.0-0.2) X10*3/uL Abs Immat Gran (auto) 0.07 H (0.00-0.03) X10*3/uL Absolute Neuts (auto) 9.7 H (2.0-8.3) x10*3/uL Absolute Nucleated RBC 0.000 (0.0-0.012) X10*3/uL Nucleated RBC % (auto) 0.0 (0.0-0.2) /100WBC D-Dimer High Sensitivty 386 NG/ML Sodium 140 (135-145) mmol/L Potassium 4.5 (3.3-5.1) mmol/L Chloride 106 (96-108) mmol/L Carbon Dioxide 23 (22-29) mmol/L Anion Gap 16 (12-20) BUN 17 H (9-16) mg/dL Creatinine 0.96 (0.5-1.4) mg/dL Estim Creat Clear Calc 144.6 Estimated GFR > 60 Random Glucose 132 H (60-115) mg/dL Calcium 10.0 (8.4-10.2) mg/dL Total Bilirubin 1.2 H (0.0-1.0) mg/dL AST 22 (5-37) U/L ALT 20 (0-40) U/L Alkaline Phosphatase 92 (39-117) U/L Total Protein 7.3 (6.5-8.0) g/dL Albumin 4.0 (3.5-5.0) g/dL Independent Interpretation I performed an independent interpretation of an: Plain X-Ray (XR/XR ankle RT min 3V IMPRESSION: 1. No acute abnormality. 2. Small ossific density along the dorsal aspect of the talonavicular joint could reflect an old ununited fracture fragment or dystrophic degenerative calcification of the capsule. ) and Ultrasound Radiology Impression Discussion of test interpretation with radiology: I have reviewed the radiologist's reading. External Record Review External record reviewed: Office record, Outpatient record and Prior outpatient labs Chronic Conditions Patient?s care impacted by: Other (predisone, morphine ) Critical Care Time Critical Care Time Critical Care Time: Yes Total Critical Care Time: 35 Attestation: I attest to this time spent taking care of the patient, obtaining history, physical, reviewing labs, imaging, speaking to my attending, specialist or hospitalist. Discharge Plan Discharge Clinical Impression: Acute ankle pain, Gout Patient Disposition: Home, Self-Care Instructions: Low Purine Diet (ED), Gout (ED), Arthralgia (ED) Additional Instructions: Take your medications as prescribed. If you were prescribed antibiotics today, it is important that you take your medication to their entirety, do not skip any doses, do not finish them early. Follow-up with your primary care provider this week. Return to the emergency department with new or worsening symptoms. Such as fevers, chills, chest pain, shortness of breath, nausea, vomiting, dizziness, headache, vision changes, lethargy In case of emergency call 911 A narcotic has been sent to your pharmacy please take this as prescribed. Do not take more than the prescribed dose. Narcotic medications can cause addiction. Please do not mix them with alcohol. Do not take them while driving or operating machinery. Do not take them with any other narcotics. Do not share them with friends or family. They can cause constipation. Take them only for severe pain. You can take Tylenol for vzbw-ho-iwyhsofe pain. In morphine a narcotic for severe pain. US/US venous duplex LE RT IMPRESSION: Very limited incomplete examination as the patient refused imaging above the right knee. No evidence of deep venous thrombosis in the right calf. Prescriptions: New acetaminophen [Tylenol Extra Strength] 500 mg tablet 500 mg PO Q6H PRN (Reason: pain) Qty: 14 0RF prednisone 20 mg tablet 40 mg PO DAILY 5 Days Qty: 10 0RF morphine 15 mg tablet 15 mg PO Q6H PRN (Reason: pain) 5 Days Qty: 10 0RF Rx Instructions: Partial Fill upon patient request. No Action lisinopril 10 mg tablet 10 mg PO BEDTIME escitalopram oxalate 10 mg tablet 10 mg PO DAILY Referrals: Maricruz Schmitt MD [Primary Care Provider] - 2 days Stand Alone Forms: Work/School Release Print Language: Arabic
[2024-05-03 12:07] VITALS: BP 148/90; PULSE 93; RESP 16; TEMP 36.4; O2SAT 95; BMI 60.8
[2024-05-03 13:24] LABS: MANUAL DIFF FLAG NO
[2024-05-03] MEDS: Morphine Sulfate Immed Release 15 MG TABLET PO (13:26)
[2024-05-03 13:29] LABS: Basophils Absolute Auto 0.1 X10*3/uL (0.0-0.2); Basophils Percent Auto 0.5 % (0-2); Eosinophils Percent Auto 0.3 % (0-4); Hematocrit 46.6 % (42.0-52.0); Hemoglobin 15.6 g/dl (14.0-18.0); Imm Gran Abs Auto 0.07 X10*3/uL (0.00-0.03); Imm Gran Pct Auto 0.6 % (0.0-0.4); Lymphocytes Absolute Auto 1.7 X10*3/uL (1.2-4.9); Lymphocytes Percent Auto 13.2 % (20-40); Mean Corpuscular HGB Conc 33.5 g/dl (31.0-36.0); Mean Corpuscular Hemoglobin 30.6 pg (27.0-33.0); Mean Corpuscular Volume 91.6 fL (80.0-98.0); Mean Platelet Volume 10.4 fL (9.4-12.4); Monocytes Absolute Auto 1.1 X10*3/uL (0.1-1.2); Neutrophils Absolute Auto 9.7 x10*3/uL (2.0-8.3); Neutrophils Percent Auto 76.4 % (45-73); Platelet Count 252 X10*3/uL (160-400); Red Blood Count 5.09 X10*6/uL (4.60-5.80); Red Cell Distribution Width 13.3 % (11.0-16.0); White Blood Count 12.7 X10*3/uL (4.8-10.8)
[2024-05-03 13:33] LABS: D Dimer High Sensitivity 386 NG/ML
[2024-05-03 13:42] LABS: Alanine Aminotransferase 20 U/L (0-40); Alkaline Phosphatase 92 U/L (39-117); Anion Gap 16 (12-20); Aspartate Amino Transferase 22 U/L (5-37); Bilirubin Total 1.2 mg/dL (0.0-1.0); Blood Urea Nitrogen 17 mg/dL (9-16); Carbon Dioxide 23 mmol/L (22-29); Chloride 106 mmol/L (96-108); Creatinine Clr Calc Pharmacy 144.6; Estimated Glomerular Filt Rate > 60; Glucose Random 132 mg/dL (60-115); Potassium 4.5 mmol/L (3.3-5.1); Sodium 140 mmol/L (135-145); Total Protein 7.3 g/dL (6.5-8.0)
[2024-05-03 15:21] VITALS: BP 124/84; PULSE 82; RESP 16; TEMP 36.4; O2SAT 98
== END 2024-05-03 15:23 | disposition home or self-care (01) ==
PROVIDERS: Physician Assistant; Emergency Provider Student in an Organized Health Care Education/Training Program; PCP Family Medicine
DX: M10.9 Gout, unspecified (principal); M25.571 Pain in right ankle and joints of right foot; M17.11 Unilateral primary osteoarthritis, right knee; Z79.899 Other long term (current) drug therapy
CPT/HCPCS: 36415; 73610; 73620; 80053; 85025; 85379; 93971; 99283; 99284

== ENCOUNTER 2024-05-22 12:47 | Emergency (ER) | payer OTHER, SELFPAY ==
--- NOTE | ~2024-05-22 | XR_ITS ---
EXAMINATION: XR FOOT, RIGHT CLINICAL INFORMATION: Right foot pain COMPARISON: Right foot and ankle 05/03/2024 TECHNIQUE: AP, lateral, and oblique views of the right foot. FINDINGS: The bones and soft tissues are unremarkable. No interval change when compared to prior. Again seen is a small ossific density along the dorsal aspect of the talonavicular joint. This could reflect an old ununited fracture fragment or dystrophic degenerative calcification of the capsule. In either event, this is not an acute finding. No acute fracture. Alignment is anatomic. Joint spaces are maintained. XR/XR foot RT min 3V IMPRESSION: 1. No acute findings. 2. Again seen is a small ossific density along the dorsal aspect of the talonavicular joint. This could reflect an old ununited fracture fragment or dystrophic degenerative calcification of the capsule. In either event, this is not an acute finding.
[2024-05-22 12:52] VITALS: BP 154/98; PULSE 88
[2024-05-22 13:42] VITALS: BP 142/92; PULSE 85; RESP 18; O2SAT 94; BMI 60.8
[2024-05-22 16:19] VITALS: BP 144/88; PULSE 98; RESP 20; TEMP 36.6; O2SAT 97
--- NOTE | 2024-05-22 16:19 | ED_ITS ---
HPI - Extremity Problem General Chief complaint: Extremity Problem Stated complaint: R FOOT PAIN W/TROUBLE WALKING PER EMS Time Seen by Provider: 05/22/24 16:19 Source: patient Mode of arrival: ambulatory Limitations: no limitations History of Present Illness HPI Narrative: 53-year-old male with a past medical history obesity and gout presents to the emergency department, via EMS, with complaints of right foot pain for the last month. He reports he was previously caring for his mother who recently he noted increased pain. He states he has had difficulty with range of motion and ambulation secondary to pain. He reports pain at the anterior portion of the foot distal to the toes as well as the posterior portion distal to the toes with erythema. He denies any trauma or overuse injuries to the foot. Pertinent positives and negatives discussed in HPI Related Data Home Medications ?Medication ?Instructions ?Recorded ?Confirmed escitalopram oxalate 10 mg tablet 10 mg PO DAILY 08/12/23 lisinopril 10 mg tablet 10 mg PO BEDTIME 08/12/23 Previous Rx's ?Medication ?Instructions ?Recorded acetaminophen 500 mg tablet 500 mg PO Q6H PRN pain #14 tabs 05/03/24 (Tylenol Extra Strength) morphine 15 mg immediate release 15 mg PO Q6H PRN pain 5 days #10 05/03/24 tablet tabs prednisone 20 mg tablet 40 mg (2 x 20 mg) PO DAILY 5 days 05/03/24 #10 tabs allopurinol 100 mg tablet 100 mg PO DAILY #14 tabs 05/22/24 Allergies Allergy/AdvReac Type Severity Reaction Status Date / Time Bleach (Sodium Hypochlorite) Allergy Mild REDNESS Verified 05/22/24 13:43 [BLEACH (SODIUM ALL OVER HYPOCHLORITE)] BODY naproxen [Aleve] Allergy Unknown Chest Pain Verified 05/22/24 13:43 From ALEVE Allergy Unknown CHEST PAIN Uncoded 05/22/24 13:43 Review of Systems Review of Systems: Yes all other systems are reviewed and are negative PMFSH Past Medical History Medical History No known health problems Social History Social History Alcohol intake: never Patient Tobacco Use Status: Never used Tobacco Advance Directives: No Advance Directives Information Provided: No Current occupational status: disabled Physical Exam Vital Signs: Vital Signs: Last Vital Signs Temp 97.9 F 05/22/24 17:05 Pulse 98 05/22/24 17:05 Resp 20 05/22/24 17:05 BP 144/88 H 05/22/24 17:05 Pulse Ox 97 05/22/24 17:05 O2 Del Method Room Air 05/22/24 17:05 BMI result Body Mass Index 60.8 Nursing notes and vital signs reviewed. GENERAL APPEARANCE: A&0 x 4, generally well appearing, no acute distress HENMT: Normal to inspection, atraumatic, face symmetrical. Normal external ears, nose, and oropharynx clear. EYE: PERRLA, EOM intact, structures appear normal NECK: Supple without stiffness or restricted ROM. HEART: Normal rate and regular rhythm, normal S1/S2, no M/R/G LUNGS: LS CTA, moving air well. Able to speak in complete sentences. No crackl es, wheezes, or rhonchi auscultated BACK: No CVAT, no obvious deformity EXTREMITIES: Decreased ROM right ankle and foot. Erythema noted at PIP joints of 1st 3rd and 4th toes. Normal capillary refill. NEUROLOGICAL: Alert and oriented, moving all 4 extremities with equal strength. CN not formally tested but appearing grossly intact. Observed to ambulate with normal gait. Cognition normal SKIN: Warm and dry without any lesions, rash, or visible sores Medications Administered Discontinued Medications Generic Name Dose Route Start Last Admin Trade Name Freq PRN Reason Stop Dose Admin Allopurinol 100 mg 05/22/24 16:36 05/22/24 17:00 Allopurinol 100 Mg Tablet PO 05/22/24 16:37 100 mg ONCE ONE Administration Ketorolac Tromethamine 15 mg 05/22/24 16:55 05/22/24 17:00 Ketorolac Tromethamine 15 Mg/Ml Vial IM 05/22/24 16:56 15 mg ONCE ONE Administration Medical Decision Making Medical Decision Making MDM Narrative: Old records reviewed for previous imaging, lab studies, ECGs, and notes. Patient was assessed the emergency department with no acute distress or toxicity noted. X-ray right foot completed showing no evidence of acute fracture or dislocation. Patient's physical exam consistent with a gout flare and allopurinol since the patient's preferred pharmacy for management. Patient given Toradol and allopurinol here in the emergency department for management of symptoms. Patient is safe for discharge at this time with plan for [id number] Tylenol and/or NSAID such as ibuprofen or naproxen for fever/discomfort with dosing as per packaging. HPI, PE, diagnostics, and plan discussed with patient and family with no unanswered questions at this time. Strict return precautions given to return to the emergency department with new, worsening, or concerning emergent symptoms. Recommended to follow-up with there primary care provider in 24-48 hours for further treatment and management. Differential Diagnosis Differential Diagnoses: The differential diagnosis associated with the presentation includes But not limited to fracture, dislocation, strain, sprain, contusion, gout, arthritis, necrotizing fasciitis, sepsis Independent Interpretation I performed an independent interpretation of an: Plain X-Ray Interpretation: As negative for acute fracture or dislocation Discharge Plan Discharge Clinical Impression: Acute foot pain, Gout Patient Disposition: Home, Self-Care Instructions: Low Purine Diet (ED), Gout (ED), Arthralgia (ED), R.I.C.E. Treatment (ED) Prescriptions: New allopurinol 100 mg tablet 100 mg PO DAILY Qty: 14 0RF No Action acetaminophen [Tylenol Extra Strength] 500 mg tablet 500 mg PO Q6H PRN (Reason: pain) Qty: 14 0RF prednisone 20 mg tablet 40 mg PO DAILY 5 Days Qty: 10 0RF morphine 15 mg tablet 15 mg PO Q6H PRN (Reason: pain) 5 Days Qty: 10 0RF Rx Instructions: Partial Fill upon patient request. lisinopril 10 mg tablet 10 mg PO BEDTIME escitalopram oxalate 10 mg tablet 10 mg PO DAILY [place] [facility] [facility] [place] [facility] [place] [facility] [facility] [place] [facility] [place]] Stand Alone Forms: Work/School Release Interventions: ED Discharge Assessment Last Done: 05/22/24 17:05 Discharge Date/Time: 05/22/24 17:16 Print Language: Macedonian
[2024-05-22] MEDS: allopurinoL 100 MG TABLET PO (17:00)
[2024-05-22] MEDS: Ketorolac Tromethamine 15 MG/ML VIAL IM (17:00)
[2024-05-22 17:05] VITALS: BP 144/88; PULSE 98; RESP 20; TEMP 36.6; O2SAT 97
== END 2024-05-22 17:16 | disposition home or self-care (01) ==
PROVIDERS: Emergency Provider Emergency Medicine
DX: M10.071 Idiopathic gout, right ankle and foot (principal); M79.671 Pain in right foot; Z79.899 Other long term (current) drug therapy
CPT/HCPCS: 73630; 96372; 99284; J1885

== ENCOUNTER 2025-11-06 14:24 | Emergency (ER) | payer OTHER, SELFPAY ==
--- NOTE | ~2025-11-06 | CT_ITS ---
CLINICAL HISTORY: Suparpubic Tenderness Pain CT Abdomen and Pelvis W Contrast COMPARISON: None provided FINDINGS: Elevation of the right hemidiaphragm. Small hiatal hernia. The upper liver is excluded from the study. Normal visualized liver. Normal spleen. Right renal cyst. Subcentimeter hypodensity in the left kidney, too small to accurately characterize. No hydronephrosis. Normal adrenal glands. Normal pancreas. No visible cholelithiasis. No biliary dilation. Colonic diverticulosis without evidence of acute diverticulitis. No mucosal thickening. No evidence of obstruction. Normal appendix. Unremarkable bladder. No ascites. No pneumoperitoneum. No lymphadenopathy. No acute fracture. Degenerative changes in the spine. No abdominal aortic aneurysm. Fat-containing left inguinal hernia. IMPRESSION: No acute findings. Nonemergent/incidental findings above. This document has been electronically signed by: Jose Juan Pelayo MD on 11/07/2025 01:41:19
[2025-11-06 14:47] VITALS: BP 145/65; PULSE 105; RESP 18; TEMP 36.7; O2SAT 96; BMI 56.6
--- NOTE | 2025-11-06 15:31 | ED.MALEGU ---
HPI - Male Genitourinary General Chief complaint: Urogenital-Male Stated complaint: UTI?, lower back pain Time Seen by Provider: 11/06/25 21:09 Source: patient Mode of arrival: ambulatory Limitations: no limitations History of Present Illness ED Provider: Kenny GOOD HPI Narrative: Patient is a 55 year old male with a past medical history of osteoarthritis presenting today with pressure and pain when he urinates which started yesterday. Denies trauma, blood in urine, burning with urination, or fevers. Pt states while in the waiting room developed bilateral low back pain. In 2022, pt was seen here and had uncomplicated b/l pyelonephritis. No history of kidney stones. Related Data Home Medications ?Medication ?Instructions ?Recorded ?Confirmed escitalopram oxalate 10 mg tablet 10 mg PO DAILY 08/12/23 lisinopril 10 mg tablet 10 mg PO BEDTIME 08/12/23 Previous Rx's ?Medication ?Instructions ?Recorded acetaminophen 500 mg tablet 500 mg PO Q6H PRN pain #14 tabs 05/03/24 (Tylenol Extra Strength) morphine 15 mg immediate release 15 mg PO Q6H PRN pain 5 days #10 05/03/24 tablet tabs prednisone 20 mg tablet 40 mg (2 x 20 mg) PO DAILY 5 days 05/03/24 #10 tabs allopurinol 100 mg tablet 100 mg PO DAILY #14 tabs 05/22/24 Allergies Allergy/AdvReac Type Severity Reaction Status Date / Time Bleach (Sodium Hypochlorite) Allergy Mild REDNESS Verified 11/06/25 14:50 (BLEACH (SODIUM ALL OVER HYPOCHLORITE)) BODY naproxen (Aleve) Allergy Unknown Chest Pain Verified 11/06/25 14:50 From ALEVE Allergy Unknown CHEST PAIN Uncoded 05/22/24 13:43 Review of Systems Review of Systems: Yes all other systems are reviewed and are negative PMFSH Past Medical History Medical History No known health problems Social History Social History Alcohol intake: never Patient Tobacco Use Status: Never used Tobacco Current occupational status: disabled Physical Exam Exam: Exam: CONSTITUTIONAL: The patient appears non-toxic, well nourished and in no acute distress. Vital signs as documented. HEAD: Atraumatic, normocephalic. EYES: EOMs grossly intact, pupils equal, conjunctiva clear, no exudate. ENT: Nares patent, no discharge. Airway patent, no audible stridor, visible mucosa is pink and moist without noted lesions. NECK: trachea is midline, no obvious masses or gross abnormalities. CHEST: Symmetric movement, normal appearance. LUNGS: Non-labored work of breathing. CARDIAC: No evidence of hypoperfusion. ABDOMEN: Protuberant symmetric, no obvious injury. Bowel sounds present in all 4 quadrants. Nontender to palpation in all 4 quadrants and suprapubic region. : No CVA tenderness bilaterally. BACK: Tenderness to bilateral SI joints. EXTREMITIES: Moves all extremities spontaneously without reported pain. No obvious injury or deformity noted. NEURO: Alert and oriented x3, CN II-XII appear grossly intact. Cerebellar Functioning grossly intact. Speech clear and appropriate. SKIN: Warm, dry, color appropriate. No rashes or lesions noted. Vital Signs: Vital Signs: Last Vital Signs Temp 98.0 F 11/07/25 03:47 Pulse 68 11/07/25 03:47 Resp 20 11/07/25 03:47 BP 134/85 11/07/25 03:47 Pulse Ox 98 11/07/25 03:47 O2 Del Method Room Air 11/07/25 03:47 BMI result Body Mass Index 56.6 CONSTITUTIONAL: The patient appears non-toxic, well nourished and in no acute distress. Vital signs as documented. HEAD: Atraumatic, normocephalic. EYES: EOMs grossly intact, pupils equal, conjunctiva clear, no exudate. ENT: Nares patent, no discharge. Airway patent, no audible stridor, visible mucosa is pink and moist without noted lesions. NECK: Trachea is midline, no obvious masses or gross abnormalities. CHEST: Symmetric movement, normal appearance. LUNGS: LS present and CTAB, no w/r/r. Non-labored work of breathing. CARDIAC: Regular Rhythm, S1/S2 appreciated, no murmurs, rubs or gallops. ABDOMEN: Abdomen soft and non-tender x4 quadrants, no palpable masses or organomegaly. : Deferred. EXTREMITIES: Normal tone, moves all extremities spontaneously without reported pain. No obvious acute injury or deformity noted. NEURO: Alert and oriented x3, CN II-XII appear grossly intact. Cerebellar Functioning grossly intact. No obvious sensory or motor deficits. Speech clear and appropriate. PSYCH: normal affect, appropriate eye contact, fluid speech, with appropriate response to questioning. No reported suicidality or homicidality. SKIN: Warm, dry, color appropriate, normal turgor. No rashes noted. Course Course Course Narrative: RME: 55 yold mlae presents to the eD for low back pin, dysuria, and uyrinary pressure. patient states pmh of UTI. labs ordered Medications Administered Discontinued Medications Generic Name Dose Route Start Last Admin Trade Name Freq PRN Reason Stop Dose Admin Acetaminophen 975 mg 11/07/25 01:25 11/07/25 01:30 Acetaminophen 325 Mg Tablet PO 11/07/25 01:26 975 mg ONCE ONE Administration Sodium Chloride 1,000 mls @ 999 mls/hr 11/06/25 22:00 11/07/25 00:26 Ns IV 11/06/25 23:00 Infused .Q1H1M RICARDO Infusion Iohexol 100 ml 11/07/25 00:45 11/07/25 00:45 Iohexol 350 Mg/Ml 100 Ml Infus..Btl IV 11/07/25 00:46 100 ml ONCE ONE Administration Morphine Sulfate 4 mg 11/06/25 22:48 11/06/25 23:04 Morphine Sulfate 4 Mg/Ml Cartridge IVPUSH 11/06/25 22:49 4 mg ONCE ONE Administration Protocol Medical Decision Making Medical Decision Making MDM Narrative: Patient is a 55 year old male with a past medical history of osteoarthritis presenting today with pressure and pain when he urinates which started yesterday. Denies trauma, blood in urine, burning with urination, or fevers. Pt states while in the waiting room developed bilateral low back pain. In 2022, pt was seen here and had uncomplicated b/l pyelonephritis. On exam, the patient is well appearing in no acute distress. Abdominal exam is nontender throughout however patient is morbidly obese with asymmetric abdomen and unreliable exam. No CVA tenderness. Laboratory evaluation reveals slight leukocytosis at 12.4, electrolytes WNL, total billirubin evealted at 1.5, AST 40. UA reveals 30 urine protein, with no ketones, blood, nitrite, RBCs, or bacteria, not consistent with a UTI. We will obtain CT of abdomen, and provide IV fluids and morphine for pain. 2:09 AM 11/07/2025 (Orin GOOD): Patient's CT abdomen has resulted and shows no acute intra-abdominal pathology. Exact cause of the patient's symptoms is not entirely clear, however patient appears safe for discharge. Patient will be discharged with outpatient follow up. Admission/Observation Consideration of admission/observation: Escalation of care including admission/observation considered Lab Data 11/06/25 16:25 11/06/25 16:25 Labs: Lab Results 11/06/25 Range/Units 16:25 WBC 12.4 H (4.8-10.8) X10*3/uL RBC 5.55 (4.60-5.80) X10*6/uL Hgb 17.4 (14.0-18.0) g/dl Hct 51.6 (42.0-52.0) % MCV 93.0 (80.0-98.0) fL MCH 31.4 (27.0-33.0) pg MCHC 33.7 (31.0-36.0) g/dl RDW 12.9 (11.0-16.0) % Plt Count 306 (160-400) X10*3/uL MPV 10.6 (9.4-12.4) fL Immature Gran % (Auto) 0.4 (0.0-0.4) % Neut % (Auto) 72.4 (45-73) % Lymph % (Auto) 18.2 L (20-40) % [place] % (Auto) 7.9 (2-11) % Eos % (Auto) 0.5 (0-4) % Baso % (Auto) 0.6 (0-2) % Lymph # (Auto) 2.3 (1.2-4.9) X10*3/uL [place] # (Auto) 1.0 (0.1-1.2) X10*3/uL Eos # (Auto) 0.1 (0.0-0.4) X10*3/uL Baso # (Auto) 0.1 (0.0-0.2) X10*3/uL Abs Immat Gran (auto) 0.05 H (0.00-0.03) X10*3/uL Absolute Neuts (auto) 9.0 H (2.0-8.3) x10*3/uL Absolute Nucleated RBC 0.000 (0.0-0.012) X10*3/uL Nucleated RBC % (auto) 0.0 (0.0-0.2) /100WBC Sodium 140 (135-145) mmol/L Potassium 4.3 (3.3-5.1) mmol/L Chloride 108 (96-108) mmol/L Carbon Dioxide 22 (22-29) mmol/L Anion Gap 14 (12-20) BUN 19 H (9-16) mg/dL Creatinine 1.23 (0.5-1.4) mg/dL Estim Creat Clear Calc 105.4 Estimated GFR > 60 Random Glucose 133 H (60-115) mg/dL Calcium 10.1 (8.4-10.2) mg/dL Total Bilirubin 1.5 H (0.0-1.0) mg/dL AST 40 H (5-37) U/L ALT 38 (0-40) U/L Alkaline Phosphatase 114 (39-117) U/L Total Protein 7.7 (6.5-8.0) g/dL Albumin 4.7 (3.5-5.0) g/dL Lipase 9 (8-78) U/L Urine Color Yellow Urine Appearance Cloudy Urine pH 5.5 (5.0-9.0) Ur Specific [place] 1.020 (1.005-1.025) Urine Protein 30 (1+) H (Neg-Trace) mg/dL Urine Glucose (UA) Negative (Negative) mg/dL Urine Ketones Negative (Negative) mg/dL Urine Blood Negative (Negative) Urine Nitrite Negative (Negative) Ur Leukocyte Esterase Negative (Negative) Urine RBC 0-2 (0-2) /HPF Urine WBC 0-5 (0-5) /HPF Ur Squamous Epith Cells 0-2 (0-2) /HPF Urine Bacteria None Seen (None Seen) Hyaline Casts 3-5 (0-2) /LPF Radiology Impression Discussion of test interpretation with radiology: I have reviewed the radiologist's reading. Radiologist Impression: CLINICAL HISTORY: Suparpubic Tenderness Pain CT Abdomen and Pelvis W Contrast COMPARISON: None provided FINDINGS: Elevation of the right hemidiaphragm. Small hiatal hernia. The upper liver is excluded from the study. Normal visualized liver. Normal spleen. Right renal cyst. Subcentimeter hypodensity in the left kidney, too small to accurately characterize. No hydronephrosis. Normal adrenal glands. Normal pancreas. No visible cholelithiasis. No biliary dilation. Colonic diverticulosis without evidence of acute diverticulitis. No mucosal thickening. No evidence of obstruction. Normal appendix. Unremarkable bladder. No ascites. No pneumoperitoneum. No lymphadenopathy. No acute fracture. Degenerative changes in the spine. No abdominal aortic aneurysm. Fat-containing left inguinal hernia. IMPRESSION: No acute findings. Nonemergent/incidental findings above. This document has been electronically signed by: Jose Juan Pelayo MD on 11/07/2025 01:41:19 Discharge Plan Discharge Clinical Impression: Abdominal pressure Patient Disposition: Home, Self-Care Instructions: Abdominal Pain (ED) Additional Instructions: Thank you for choosing [facility]'s Emergency Department for your care today. Thankfully your laboratory evaluation, urinalysis, CT, exam, and vital signs today are all reassuring. There is no evidence of a urinary tract infection, bowel obstruction, kidney stone, or other dangerous cause for your abdominal pressure today. At this time there is no indication for surgical intervention, admission to the hospital or continued ED observation, and it is safe to discharge you home. The exact cause of your symptoms is not entirely clear, however seeing as there is no emergent process identified on your workup today, we recommend that you follow up with the your primary care provider for a urology referral and additional investigation of the source of your symptoms. Please continue taking all your daily medications as prescribed until instructed otherwise by your PCP. Please follow up with your primary care physician for re-evaluation, additional management of your symptoms, and continued preventative care. If you do not have a primary care physician, please call the [facility] at [phone] to establish a new primary care physician. While waiting to establish your new primary care physician, you can call our Walk[facility]in [facility] at [phone] for non-emergency needs. Please return to the emergency department if you develop a severe or sudden change in your symptoms, a fever over 100.4 that does not improve with Tylenol or Ibuprofen, recurrent vomiting, or any other new or worsening symptoms or concerns. Prescriptions: No Action acetaminophen [Tylenol Extra Strength] 500 mg tablet 500 mg PO Q6H PRN (Reason: pain) Qty: 14 0RF prednisone 20 mg tablet 40 mg PO DAILY 5 Days Qty: 10 0RF morphine 15 mg tablet 15 mg PO Q6H PRN (Reason: pain) 5 Days Qty: 10 0RF Rx Instructions: Partial Fill upon patient request. allopurinol 100 mg tablet 100 mg PO DAILY Qty: 14 0RF lisinopril 10 mg tablet 10 mg PO BEDTIME escitalopram oxalate 10 mg tablet 10 mg PO DAILY Referrals: Group,[facility] [Primary Care Provider, Primary Care] Clinical Impression: Abdominal pressure Interventions: ED Discharge Assessment Last Done: 11/07/25 03:47 Discharge Date/Time: 11/07/25 03:48 Print Language: South Korean
[2025-11-06 16:37] LABS: MANUAL DIFF FLAG NO
[2025-11-06 16:47] LABS: Hematocrit 51.6 % (42.0-52.0); Hemoglobin 17.4 g/dl (14.0-18.0); Imm Gran Abs Auto 0.05 X10*3/uL (0.00-0.03); Imm Gran Pct Auto 0.4 % (0.0-0.4); Lymphocytes Absolute Auto 2.3 X10*3/uL (1.2-4.9); Mean Corpuscular HGB Conc 33.7 g/dl (31.0-36.0); Mean Corpuscular Hemoglobin 31.4 pg (27.0-33.0); Mean Corpuscular Volume 93.0 fL (80.0-98.0); NRBC Abs Auto 0.000 X10*3/uL (0.0-0.012); NRBC Pct Auto 0.0 /100WBC (0.0-0.2); Platelet Count 306 X10*3/uL (160-400); Red Blood Count 5.55 X10*6/uL (4.60-5.80); White Blood Count 12.4 X10*3/uL (4.8-10.8)
[2025-11-06 16:49] LABS: Appearance Urine Cloudy; Glucose Urine UA Negative (Negative); PH 5.5 (5.0-9.0); Specific Gravity - Urine 1.020 (1.005-1.025); UMIC TRIGGER UACC YES
[2025-11-06 16:58] LABS: Alanine Aminotransferase 38 U/L (0-40); Albumin Level 4.7 g/dL (3.5-5.0); Alkaline Phosphatase 114 U/L (39-117); Anion Gap 14 (12-20); Aspartate Amino Transferase 40 U/L (5-37); Blood Urea Nitrogen 19 mg/dL (9-16); Calcium 10.1 mg/dL (8.4-10.2); Carbon Dioxide 22 mmol/L (22-29); Chloride 108 mmol/L (96-108); Creatinine Clr Calc Pharmacy 105.4; Estimated Glomerular Filt Rate > 60; Lipase 9 U/L (8-78); Potassium 4.3 mmol/L (3.3-5.1); Sodium 140 mmol/L (135-145); Total Protein 7.7 g/dL (6.5-8.0)
[2025-11-06 19:59] VITALS: BP 129/70; PULSE 79; RESP 16; TEMP 36.6; O2SAT 99
[2025-11-06 23:03] VITALS: BP 134/85; PULSE 68; RESP 20
--- OUTSIDE RECORDS SUMMARY | 2025-11-06 23:27 | XMS_ITS ---
Author Name [facility] Organization Unknown Care Team Organization Name Specialty Phone Email Start Date End Da te [facility] 10/06/2022 4
[2025-11-07] MEDS: iohexoL 350 MG/ML 100 ML INFUS..BTL IV (00:45)
[2025-11-07 03:47] VITALS: BP 134/85; PULSE 68; RESP 20; TEMP 36.7; O2SAT 98
--- NOTE | 2025-11-07 03:48 | PC.NURSE ---
Iv removed, reviewed discharge instructions with pt. pt verbalized understanding, notified SHYANN Oh
== END 2025-11-07 03:48 | disposition home or self-care (01) ==
PROVIDERS: Physician Assistant; Emergency Provider Emergency Medicine
DX: R10.24 Suprapubic pain (principal); M54.50 Low back pain, unspecified; K44.9 Diaphragmatic hernia without obstruction or gangrene
CPT/HCPCS: 36415; 74177; 80053; 81001; 81003; 83690; 85025; 96361; 96374; 99284; 99285; J2270; Q9967

== ENCOUNTER → 2025-11-07 | Outpatient (BNV) | payer OTHER, SELFPAY | PROVIDERS: Emergency Provider Emergency Medicine; Visit Provider Radiology Diagnostic Radiology | DX: R10.24 Suprapubic pain (principal); R10.8A3 Suprapubic tenderness | CPT/HCPCS: 74177 ==